=== PATIENT | male | born 1945 | race Caucasian/White ===

== ENCOUNTER 2022-08-28 12:33 | Inpatient (IN) ==
--- NOTE | 2022-08-28 12:49 | ED Triage Note ---
Date of Service August 28, 2022 History of Present Illness This patient was briefly evaluated while in triage. An abbreviated physical exam was performed. This patient is a 76-year-old Male who presents to the ED for evaluation of a fall last night. The patient and are visiting the area from [facility]. The patient lost his balance, and lost his reference in a dark room. Patient reports that he did have some dizziness yesterday. He does have weakness in the legs but seems to be at his baseline. Patient does have a prior history of diabetes, CVA and Parkinson's disease. His last CVA was approximately 1.5 years ago. Patient reports that he fell 1 week ago, and still has some open wounds on his left upper extremity. Patient currently rates his overall discomfort a 3 out of 10. Physical Exam CONSTITUTIONAL: Healthy and well nourished. Alert and oriented X 3. GCS 15. HEENT: Normocephalic, atraumatic. NECK: Full active range of motion without discomfort. RESPIRATORY: Clear to auscultation bilaterally with no wheezing, crackles, rhonchi or stridor. CARDIOVASCULAR: Regular rate and rhythm with no murmurs, rubs or gallops. GASTROINTESTINAL: Bowel sounds present in all quadrants. MUSCULOSKELETAL: Examination shows dressings on his left upper extremity. He also has an abrasion of the left anterior knee. INTEGUMENTARY: No rash or other significant dermatologic conditions noted. HEMATOLOGIC: No ecchymosis or petechiae. PSYCHIATRIC: Positive affect. NEUROLOGIC: No focal neurologic deficits noted. Initial orders for labs and / or imaging were placed and patient was placed in the waiting area until a bed is available. Please see further documentation for the full ED course.
--- NOTE | 2022-08-28 13:27 | CT Scan Report ---
CT head/brain wo con CLINICAL HISTORY: 76 years-old Male with Weakness, h/o CVA. Acute weakness with stroke like symptoms TECHNIQUE: Multiple axial CT images of the head were obtained without contrast. A dose lowering tech nique was utilized adhering to the principles of ALARA. CT DOSE: 625.80 mGy.cm COMPARISON: None. FINDINGS: No acute intracranial hemorrhage, midline shift, intracranial mass, hydrocephalus, territorial ischem ia or abnormal extra-axial collection. Involutional changes with chronic microvascular ischemic disea se. Scattered areas of encephalomalacia noted within the bilateral cerebral hemispheres. 6 mm ill-def ined hypodense focus in the posterior limb of the right internal capsule. Cerebral vascular calcifica tions. Motion degraded exam. The calvarium is intact. Prior bilateral lens repair. The paranasal sinuses, mastoid air cells, and m iddle ear cavities are clear. IMPRESSION: 1. Motion degraded exam without acute intracranial hemorrhage, midline shift or acute territorial inf arct. 2. Involutional changes with chronic microvascular ischemic disease. 3. Scattered areas of encephalomalacia within the bilateral cerebral hemispheres suggestive of chroni c infarcts. 4. Age-indeterminate subcentimeter lacunar infarct of the posterior limb right internal capsule. ACT 112: Negative or not required by law. The above report was generated using voice recognition software. It may contain grammatical, syntax o r spelling errors. Electronically signed by: Tyler Thrasher M.D. 08/28/2022 1:26 PM
--- NOTE | 2022-08-28 13:55 | XRay Report ---
XR chest 1V portable HISTORY: 76 years-old Male Weakness, falls acute weakness COMPARISON: None TECHNIQUE: AP view of the chest FINDINGS: Cardiac silhouette is upper limits of normal in size. A loop recorder device. Atherosclerosis of the aorta. No pneumothorax, pleural effusion, airspace consolidation or pulmonary edema. Bones appear janie ssly intact. Spondylitic spurring of the spine. IMPRESSION: No acute process. ACT 112: Negative or not required by law. The above report was generated using voice recognition software. It may contain grammatical, syntax o r spelling errors. Electronically signed by: Tyelr Thrasher M.D. 08/28/2022 1:53 PM
[2022-08-28 15:22] LABS: Basophils # (auto) 0.05 K/uL (0-0.2); Basophils % (auto) 0.5 %; Eosinophils # (auto) 0.07 K/uL (0-0.50); Eosinophils % (auto) 0.7 %; Hematocrit (blood only) 39.1 % (42.0-52.0); Hemoglobin 13.7 g/dl (14.0-18.0); Immature Granulocytes # (auto) 0.03 K/uL (0.01-0.20); Immature Granulocytes % (auto) 0.3 %; Lymphocytes # (auto) 1.35 K/uL (1.2-3.4); Lymphocytes % (auto) 13.9 %; Mean Corpuscular Hemoglobin 31.9 pg (25.0-34.0); Mean Corpuscular Volume 90.9 fL (80.0-100.0); Mean Platelet Volume 9.9 fL (9.4-12.4); Monocytes # (auto) 0.59 K/uL (0.11-0.59); Monocytes % (auto) 6.1 %; Neutrophils # (auto) 7.62 K/uL (1.40-6.50); Neutrophils % (auto) 78.5 %; Platelet Count 237 K/uL (130-400); RDW Coefficient of Variation 13.3 % (11.5-14.5); RDW Standard Deviation 44.4 fL (36.4-46.3); White Blood Count 9.71 K/ul (4.8-10.8)
--- NOTE | 2022-08-28 15:40 | Electrocardiogram Report ---
Test Reason : Blood Pressure : / mmHG Vent. Rate : 089 BPM Atrial Rate : 089 BPM P-R Int : 086 ms QRS Dur : 102 ms QT Int : 384 ms P-R-T Axes : 084 018 063 degrees QTc Int : 467 ms Sinus rhythm with short OH and brief pause (prior to first beat) Low voltage QRS Borderline ECG No previous ECGs available Confirmed by Issac Almonte ([id number]) on 08/28/2022 3:40:25 PM Referred By: REFERRED SELF Confirmed By:Issac Almonte
[2022-08-28 15:41] LABS: Alanine Aminotransferase 13 U/L (7-52); Albumin Globulin Ratio 1.7 (0.9-2); Albumin Level 4.4 gm/dl (3.4-5.0); Alkaline Phosphatase 65 U/L (34-104); Anion Gap 6 (3-11); Aspartate Aminotransferase 15 U/L (13-39); BUN Creatinine Ratio 15.2 (10-20); Bilirubin,Total 0.5 mg/dl (0.2-1.0); Blood Urea Nitrogen 15 mg/dl (6-23); Calcium 9.7 mg/dl (8.6-10.3); Carbon Dioxide 25 mmol/L (21-32); Chloride 109 mmol/L (98-107); Est GFR (African American) 84.2 ml/min; Est GFR (Non-African American) 72.6 ml/min; Globulin 2.6 gm/dl (2.5-4.0); Glucose 164 mg/dl (70-99(Fasting)); Magnesium 1.6 mg/dl (1.7-2.4); Potassium 4.6 mmol/L (3.5-5.1); Sodium 140 mmol/L (136-145)
[2022-08-28 15:47] LABS: Troponin I High Sensitivity 10.5 pg/ml (0-20)
[2022-08-28 16:11] LABS: INR 1.2 (0.9-1.1); Partial Thromboplastin Ratio 1.4; Partial Thromboplastin Time 39.4 Seconds (21.0-31.0); Prothrombin Time 13.4 Seconds (9.0-12.0)
[2022-08-28] MEDS ORDERED: SODIUM CHLORIDE 0.9% 1000ML 500 ML IV ONE (17:03)
[2022-08-28 17:38] LABS: Appearance Urine Clear (Clear); Bilirubin Urine Negative (Negative); Blood Urine Negative (Negative); Color Urine Yellow; Glucose Urine UA Negative (Negative); Ketones Urine Negative (Negative); Leukocyte Esterase Urine Negative (Negative); Nitrite Urine Negative (Negative); Protein Urine Negative (Negative); Specific Gravity Urine 1.014 (1.000-1.030); Urobilinogen Urine Negative (Negative); pH Urine 5.5 (4.5-7.5)
[2022-08-28 17:42] LABS: Creatine Kinase 159 U/L (30-223)
[2022-08-28] MEDS ORDERED: IOVERSOL 350 MG 125mL Prefilled Syringe IV ONE (18:21)
[2022-08-28] MEDS ORDERED: methylPREDNISolone 125 MG/2 ML VIAL IV STA (18:26)
[2022-08-28] MEDS ORDERED: diphenhydrAMINE 50 MG/ML VIAL IV STA (18:26)
--- NOTE | 2022-08-28 19:04 | CT Scan Report ---
HEAD & NECK CTA HISTORY: weakness difficulty walking TECHNIQUE: Multiaxial CT images of the head were performed following the intravenous administration o f contrast to evaluate the major cerebral vessels. Multiaxial CT images of the neck were also perform ed following the intravenous administration of contrast to evaluate the major cervical vessels. 3D/OK P images were also obtained. Sagittal and coronal reformats were reviewed. A dose lowering technique was utilized adhering to the principles of ALARA. COMPARISON: Head CT 08/28/2022. FINDINGS: Scattered old infarcts are again noted within the brain. The paranasal sinuses and mastoid air cells are clear. Moderate calcified plaque within the distal vertebral arteries and bilateral carotid sipho ns. This results in mild focal narrowing within the distal right vertebral artery and bilateral supra clinoid ICAs. The basilar artery is widely patent. Mild multifocal narrowing within the left SECURITY SYSTEM ANALYST. The right SECURITY SYSTEM ANALYST is widely patent. Mild multifocal narrowing within the right SHANDRA. The left SHANDRA is widely p atent. No significant stenosis or occlusion within the bilateral MCAs. No cerebral aneurysms identifi ed. The aortic arch and proximal great vessels are widely patent. No significant stenosis, occlusion, o r dissection within the bilateral vertebral arteries. Moderate calcified plaque within the bilateral carotid bifurcations. This results in approximately 30% stenosis at the takeoff of the right internal carotid artery and up to 50% stenosis at the takeoff of the left internal carotid artery. This is be st seen on image 215. The mid to distal bilateral internal carotid arteries are patent. The right com mon carotid artery is patent. There is approximately 60-70% stenosis at the distal left common caroti d artery best seen on image 208 due to the atherosclerotic plaque. IMPRESSION: 1. Multifocal areas of mild stenosis within the cerebral arteries as described above. No high-grade s tenosis or occlusion identified. 2. Approximately 60-70% stenosis at the distal left common carotid artery and 50% stenosis at the ewa eoff of the left internal carotid artery due to the atherosclerotic plaque. 3. Approximately 30% focal stenosis at the takeoff of the right internal carotid artery. 4. The bilateral cervical vertebral arteries are widely patent. ACT 112: Negative or not required by law. Electronically signed by: Manan Morton M.D. 08/28/2022 7:02 PM
--- NOTE | 2022-08-28 19:04 | CT Scan Report ---
HEAD & NECK CTA HISTORY: weakness difficulty walking TECHNIQUE: Multiaxial CT images of the head were performed following the intravenous administration o f contrast to evaluate the major cerebral vessels. Multiaxial CT images of the neck were also perform ed following the intravenous administration of contrast to evaluate the major cervical vessels. 3D/NC P images were also obtained. Sagittal and coronal reformats were reviewed. A dose lowering technique was utilized adhering to the principles of ALARA. COMPARISON: Head CT 08/28/2022. FINDINGS: Scattered old infarcts are again noted within the brain. The paranasal sinuses and mastoid air cells are clear. Moderate calcified plaque within the distal vertebral arteries and bilateral carotid sipho ns. This results in mild focal narrowing within the distal right vertebral artery and bilateral supra clinoid ICAs. The basilar artery is widely patent. Mild multifocal narrowing within the left CAREER TECHNICAL EDUCATION INSTRUCTOR. The right CAREER TECHNICAL EDUCATION INSTRUCTOR is widely patent. Mild multifocal narrowing within the right SHANDRA. The left SHANDRA is widely p atent. No significant stenosis or occlusion within the bilateral MCAs. No cerebral aneurysms identifi ed. The aortic arch and proximal great vessels are widely patent. No significant stenosis, occlusion, o r dissection within the bilateral vertebral arteries. Moderate calcified plaque within the bilateral carotid bifurcations. This results in approximately 30% stenosis at the takeoff of the right internal carotid artery and up to 50% stenosis at the takeoff of the left internal carotid artery. This is be st seen on image 215. The mid to distal bilateral internal carotid arteries are patent. The right com mon carotid artery is patent. There is approximately 60-70% stenosis at the distal left common caroti d artery best seen on image 208 due to the atherosclerotic plaque. IMPRESSION: 1. Multifocal areas of mild stenosis within the cerebral arteries as described above. No high-grade s tenosis or occlusion identified. 2. Approximately 60-70% stenosis at the distal left common carotid artery and 50% stenosis at the ewa eoff of the left internal carotid artery due to the atherosclerotic plaque. 3. Approximately 30% focal stenosis at the takeoff of the right internal carotid artery. 4. The bilateral cervical vertebral arteries are widely patent. ACT 112: Negative or not required by law. Electronically signed by: Manan Morton M.D. 08/28/2022 7:02 PM
[2022-08-28] MEDS ORDERED: NITROGLYCERIN SL 0.4 MG/TAB TAB SL PRN (22:14)
[2022-08-28] MEDS ORDERED: PHARMACIST DISCHARGE MED REC CONSULT PRN (22:14)
[2022-08-28] MEDS ORDERED: POLYETHYLENE (MIRALAX) 17 GM PACK PO PRN (22:14)
--- NOTE | 2022-08-28 22:14 | Emergency Department Note ---
History of Present Illness General Chief complaint: Fall Stated complaint: FALL, LT ARM INJURY, WEAKNESS - HAS HAD STROKES Time Seen by Provider: 08/28/22 16:40 History of Present Illness Provider complaint: Dizziness weakness fall Onset (ago): day(s) 2 Maximum Pain Intensity: 5 76-year-old male male presents emergency department for dizziness weakness and fall. Patient reports that he is visiting the area from the [facility]. He states most of his doctors are at [facility]. The patient states that he has a history of Parkinson's and stroke. He also states he has a history of atrial fibrillation and is on a blood thinner that he takes twice daily but he does not remember for his Eliquis or Xarelto. Patient reports that last night he got up in the middle night to urinate when he felt dizzy and fell. He states he felt very weak. His states that the patient called out for her and then she helped him up patient was not on the ground for extensive amount of time. Patient does not think he hit his head. Patient states he feels very weak and unsteady on his feet. Home Medications Medication Instructions Recorded Confirmed Type atorvastatin 80 mg tablet 80 mg PO QPM 08/28/22 08/28/22 History azelastine 137 mcg (0.1 %) nasal 2 spray intranasal Q12H 08/28/22 08/28/22 History spray aerosol bupropion HCl 300 mg 24 hr tablet, 300 mg PO DAILY 08/28/22 08/28/22 History extended release clindamycin phosphate 1 % topical 1 applic topical Q OTHER DAY PRN 08/28/22 08/28/22 History gel roseaca cyanocobalamin (vitamin B-12) 1,000 mcg PO DAILY 08/28/22 08/28/22 History 1,000 mcg tablet dabigatran etexilate 150 mg capsule 150 mg PO BID 08/28/22 08/28/22 History latanoprost 0.005 % eye drops 1 drp ophthalmic (eye) HS 08/28/22 08/28/22 History linaclotide 145 mcg capsule 145 mcg PO QAM 08/28/22 08/28/22 History (Linzess) lisinopril 20 mg tablet 20 mg PO DAILY 08/28/22 08/28/22 History metformin 1,000 mg tablet 1,000 mg PO BID 08/28/22 08/28/22 History mirtazapine 15 mg tablet 15 mg PO QPM 08/28/22 08/28/22 History pantoprazole 40 mg tablet,delayed See Rx Instructions .Route .COMPLEX 08/28/22 08/28/22 History release zolpidem 5 mg tablet 5 mg PO HS PRN Sleep 08/28/22 08/28/22 History Allergies Allergy/AdvReac Type Severity Reaction Status Date / Time Sulfa (Sulfonamide Allergy from when Unverified 08/28/22 19:22 Antibiotics) he was young Iodinated Contrast Media AdvReac Intermediate skin Unverified 08/28/22 19:27 turned red and warm, felt sick/some trouble breathing Past Med/Surg History Medical History Atrial fibrillation CVA (cerebral vascular accident) Diabetes GERD (gastroesophageal reflux disease) HLD (hyperlipidemia) HTN (hypertension) No pertinent family history Surgical History No pertinent past surgical history Social History Smoking Status: Never smoker Feels Safe at Home: Yes Physical Exam Vital Signs Vital Signs - 24 hr 08/28/22 12:45 08/28/22 16:13 08/28/22 16:30 Temperature 36.6 C Temperature Source Temporal Artery Scan Pulse Rate 58 L 73 Pulse Rate [Left Apical] 94 H Pulse Rate from SpO2 Sensor Respiratory Rate 20 20 17 Respiratory Effort / Characteristics Non-Labored Respiratory Depth Normal Normal Blood Pressure 133/58 L 159/89 H Blood Pressure [Right Arm] 164/85 H Blood Pressure Mean 83 112 Blood Pressure Mean [Right Arm] 111 Pulse Oximetry 96 97 97 Oxygen Delivery Method Room Air Room Air Room Air Sepsis Recent Fever Within 48 Hours No Sepsis New/Unexplained Change in Mental Status N/A Sepsis Action Taken by Nursing No Action Required 08/28/22 16:37 08/28/22 17:52 08/28/22 18:25 Temperature Temperature Source Pulse Rate 68 78 107 H Pulse Rate [Left Apical] Pulse Rate from SpO2 Sensor Respiratory Rate 14 12 Respiratory Effort / Characteristics Respiratory Depth Blood Pressure 159/85 H 88/56 L Blood Pressure [Right Arm] Blood Pressure Mean 109 66 Blood Pressure Mean [Right Arm] Pulse Oximetry 97 97 Oxygen Delivery Method Room Air Room Air Sepsis Recent Fever Within 48 Hours Sepsis New/Unexplained Change in Mental Status Sepsis Action Taken by Nursing 08/28/22 18:30 08/28/22 18:30 08/28/22 18:35 Temperature Temperature Source Pulse Rate 94 H Pulse Rate [Left Apical] Pulse Rate from SpO2 Sensor 94 H Respiratory Rate 18 Respiratory Effort / Characteristics Respiratory Depth Blood Pressure 110/64 132/69 Blood Pressure [Right Arm] Blood Pressure Mean 80 98 Blood Pressure Mean [Right Arm] Pulse Oximetry 97 Oxygen Delivery Method Sepsis Recent Fever Within 48 Hours Sepsis New/Unexplained Change in Mental Status Sepsis Action Taken by Nursing 08/28/22 18:35 08/28/22 18:40 08/28/22 18:41 Temperature Temperature Source Pulse Rate 90 91 H Pulse Rate [Left Apical] Pulse Rate from SpO2 Sensor 89 91 H Respiratory Rate 23 25 H Respiratory Effort / Characteristics Respiratory Depth Blood Pressure 134/71 Blood Pressure [Right Arm] Blood Pressure Mean 102 Blood Pressure Mean [Right Arm] Pulse Oximetry 95 93 Oxygen Delivery Method Sepsis Recent Fever Within 48 Hours Sepsis New/Unexplained Change in Mental Status Sepsis Action Taken by Nursing 08/28/22 18:41 08/28/22 18:46 08/28/22 18:46 Temperature Temperature Source Pulse Rate 91 H 98 H Pulse Rate [Left Apical] Pulse Rate from SpO2 Sensor 91 H 97 H Respiratory Rate 18 20 Respiratory Effort / Characteristics Respiratory Depth Blood Pressure 136/92 Blood Pressure [Right Arm] Blood Pressure Mean 94 Blood Pressure Mean [Right Arm] Pulse Oximetry 96 97 Oxygen Delivery Method Sepsis Recent Fever Within 48 Hours Sepsis New/Unexplained Change in Mental Status Sepsis Action Taken by Nursing 08/28/22 18:50 08/28/22 20:36 08/28/22 20:29 Temperature Temperature Source Pulse Rate 97 H 61 Pulse Rate [Left Apical] 61 Pulse Rate from SpO2 Sensor 98 H Respiratory Rate 14 18 Respiratory Effort / Characteristics Respiratory Depth Blood Pressure Blood Pressure [Right Arm] 141/73 H Blood Pressure Mean Blood Pressure Mean [Right Arm] 95 Pulse Oximetry 97 96 Oxygen Delivery Method Room Air Sepsis Recent Fever Within 48 Hours Sepsis New/Unexplained Change in Mental Status Sepsis Action Taken by Nursing Physical Exam GENERAL: He is oriented to person, place, and time. He appears well-developed and well-nourished. He does not appear distressed. HENT: Exam performed. - Head: Normocephalic and atraumatic. - Right Ear: External ear normal. No mastoid erythema - Left Ear: External ear normal. No mastoid erythema - Mouth/Throat: The oropharynx is clear and moist. No trismus in the jaw. No dental abscesses or uvula swelling. No oropharyngeal exudate or tonsillar abscesses. EYES: Conjunctivae and EOM are normal. Pupils are equal, round, and reactive to light. Right eye exhibits no discharge. Left eye exhibits no discharge. No scleral icterus. NECK: Normal range of motion. Neck supple. No JVD present. No spinous process tenderness present. No carotid bruit present. No rigidity. No tracheal deviation and normal range of motion present. CV: Normal rate, regular rhythm, normal heart sounds and intact distal pulses. There is no peripheral edema. Palpable radial pulses bue. PULM/CHEST: Effort normal and breath sounds normal. No respiratory distress. No stridor. He has no wheezes. He has no rales. - Chest Wall: He exhibits no tenderness. ABD: The abdomen is soft. There is no tenderness. There is no rebound, no guarding MUSC/SKEL: Pelvis stable. NEURO: Motor and sensation grossly intact. Course Course 1640: The patient was evaluated in room C9. A complete history and physical exam was performed Cardiac monitoring: An order was placed for continuous cardiac monitoring. The monitor shows a rate of 70 with atrial fibrilation rhythm interpreted by me 1830: Patient arrived back from CT angio scanning and the nurse reported that the patient was having difficulty breathing and was flushed. No tongue or lip swelling. On reassessment the patient is in no respiratory distress, lungs are clear to auscultation, no stridor, patient does have a mild erythematous rash. IV fluids IV Benadryl and IV Solu-Medrol given to the patient. 195: Vital signs stable. Patient's erythema has resolved. Patient is in no respiratory distress. Lungs clear to auscultation. No tongue or lip swelling. Labs are within normal limits. CT of the head shows microvascular ischemic disease with scattered areas of encephalomalacia suggestive of chronic infarcts and an age-indeterminate subcentimeter lacunar infarct of the right internal capsule. The states that the patient's doctors at [facility] told him he has had multiple strokes before he had his stroke most recently when he needed tPA. CT angios show multifocal areas of mild stenosis within the cerebral arter ies 6070% distal left common carotid artery and 50% stenosis at the takeoff 30% stenosis at the takeoff of the right internal carotid artery. states that this is being monitored and they have an appointment with [facility] vascular surgery next week. Patient and state that they feel that the patient is too weak and unstable on his feet to go back to the hotel room and be driven back to [place]. Patient will be admitted to the [facility] team. 2015: Called to bedside by nursing as the patient slid onto the floor onto his buttocks after his tried to help him ambulate to a chair adjacent to his bed. Patient denies hitting his head. Patient was lifted back into the bed by myself and nursing. Pelvis is stable. No pain on palpation of the pelvis. Patient did not hit his head no need for reimaging of the patient's head at this time. Administered Medications Discontinued Medications Diphenhydramine HCl (Diphenhydramine 50 Mg/Ml Vial) 25 mg IV NOW STA Stop: 08/28/22 18:27 Last Admin: 08/28/22 18:29 Dose: 25 mg Documented By: CHELSY Sodium Chloride (Nss 1000ml) 500 mls @ 999 mls/hr IV .Q31M ONE Stop: 08/28/22 17:33 Last Infusion: 08/28/22 17:54 Dose: 0 mls/hr Documented By: Admin: 08/28/22 17:26 Dose: 999 mls/hr Documented By: ECHO Ioversol (Ioversol 350 Mg 125ml Prefilled Syringe) 117 ml IV ONCE ONE Stop: 08/28/22 18:22 Last Admin: 08/28/22 18:22 Dose: 117 ml Documented By: EDGAR Methylprednisolone (Methylprednisolone 125 Mg/2 Ml Vial) 125 mg IV NOW STA Stop: 08/28/22 18:27 Last Admin: 08/28/22 18:29 Dose: 125 mg Documented By: CHELSY Medical Decision Making Laboratory Data Attestation: I reviewed the patient's lab results. 08/28/22 14:50 08/28/22 14:50 Lab Results 08/28/22 08/28/22 08/28/22 Range/Units 14:50 14:50 14:50 WBC 9.71 (4.8-10.8) K/ul RBC 4.30 L (4.70-6.10) M/uL Hgb 13.7 L (14.0-18.0) g/dl Hct 39.1 L (42.0-52.0) % MCV 90.9 (80.0-100.0) fL MCH 31.9 (25.0-34.0) pg MCHC 35.0 (32.0-36.0) g/dL RDW Std Deviation 44.4 (36.4-46.3) fL RDW Coeff of Osmar 13.3 (11.5-14.5) % Plt Count 237 (130-400) K/uL MPV 9.9 (9.4-12.4) fL Immature Gran % (Auto) 0.3 % Neut % (Auto) 78.5 % Lymph % (Auto) 13.9 % [place] % (Auto) 6.1 % Eos % (Auto) 0.7 % Baso % (Auto) 0.5 % Neut # (Auto) 7.62 H (1.40-6.50) K/uL Lymph # (Auto) 1.35 (1.2-3.4) K/uL [place] # (Auto) 0.59 (0.11-0.59) K/uL Eos # (Auto) 0.07 (0-0.50) K/uL Baso # (Auto) 0.05 (0-0.2) K/uL Immature Gran # (Auto) 0.03 (0.01-0.20) K/uL PT 13.4 H (9.0-12.0) Seconds INR 1.2 H (0.9-1.1) APTT 39.4 H (21.0-31.0) Seconds PTT Ratio 1.4 Sodium 140 (136-145) mmol/L Potassium 4.6 (3.5-5.1) mmol/L Chloride 109 H (98-107) mmol/L Carbon Dioxide 25 (21-32) mmol/L Anion Gap 6 (3-11) BUN 15 (6-23) mg/dl Creatinine 0.99 (0.6-1.4) mg/dl Est Cr Clr Drug Dosing Not Reportable Est GFR ( Amer) 84.2 ml/min Est GFR (Non-Af Amer) 72.6 ml/min BUN/Creatinine Ratio 15.2 (10-20) Glucose 164 H (70-99(Fasting)) mg/dl Calcium 9.7 (8.6-10.3) mg/dl Magnesium 1.6 L (1.7-2.4) mg/dl Total Bilirubin 0.5 (0.2-1.0) mg/dl AST 15 (13-39) U/L ALT 13 (7-52) U/L Alkaline Phosphatase 65 (34-104) U/L Total Creatine Kinase 159 (30-223) U/L Troponin I High Sens 10.5 (0-20) pg/ml Total Protein 7.0 (6.0-8.3) gm/dl Albumin 4.4 (3.4-5.0) gm/dl Globulin 2.6 (2.5-4.0) gm/dl Albumin/Globulin Ratio 1.7 (0.9-2) TSH (0.300-4.500) uIu/ml Urine Color Urine Appearance (Clear) Urine pH (4.5-7.5) Ur Specific [place] (1.000-1.030) Urine Protein (Negative) Urine Glucose (UA) (Negative) Urine Ketones (Negative) Urine Blood (Negative) Urine Nitrite (Negative) Urine Bilirubin (Negative) Urine Urobilinogen (Negative) Ur Leukocyte Esterase (Negative) SARS-CoV-2, RNA, NAAT (NEGATIVE) 08/28/22 08/28/22 08/28/22 Range/Units 14:50 17:25 20:38 WBC (4.8-10.8) K/ul RBC (4.70-6.10) M/uL Hgb (14.0-18.0) g/dl Hct (42.0-52.0) % MCV (80.0-100.0) fL MCH (25.0-34.0) pg MCHC (32.0-36.0) g/dL RDW Std Deviation (36.4-46.3) fL RDW Coeff of Osmar (11.5-14.5) % Plt Count (130-400) K/uL MPV (9.4-12.4) fL Immature Gran % (Auto) % Neut % (Auto) % Lymph % (Auto) % [place] % (Auto) % Eos % (Auto) % Baso % (Auto) % Neut # (Auto) (1.40-6.50) K/uL Lymph # (Auto) (1.2-3.4) K/uL [place] # (Auto) (0.11-0.59) K/uL Eos # (Auto) (0-0.50) K/uL Baso # (Auto) (0-0.2) K/uL Immature Gran # (Auto) (0.01-0.20) K/uL PT (9.0-12.0) Seconds INR (0.9-1.1) APTT (21.0-31.0) Seconds PTT Ratio Sodium (136-145) mmol/L Potassium (3.5-5.1) mmol/L Chloride (98-107) mmol/L Carbon Dioxide (21-32) mmol/L Anion Gap (3-11) BUN (6-23) mg/dl Creatinine (0.6-1.4) mg/dl Est Cr Clr Drug Dosing Est GFR ( Amer) ml/min Est GFR (Non-Af Amer) ml/min BUN/Creatinine Ratio (10-20) Glucose (70-99(Fasting)) mg/dl Calcium (8.6-10.3) mg/dl Magnesium (1.7-2.4) mg/dl Total Bilirubin (0.2-1.0) mg/dl AST (13-39) U/L ALT (7-52) U/L Alkaline Phosphatase (34-104) U/L Total Creatine Kinase (30-223) U/L Troponin I High Sens (0-20) pg/ml Total Protein (6.0-8.3) gm/dl Albumin (3.4-5.0) gm/dl Globulin (2.5-4.0) gm/dl Albumin/Globulin Ratio (0.9-2) TSH 0.699 (0.300-4.500) uIu/ml Urine Color Yellow Urine Appearance Clear (Clear) Urine pH 5.5 (4.5-7.5) Ur Specific [place] 1.014 (1.000-1.030) Urine Protein Negative (Negative) Urine Glucose (UA) Negative (Negative) Urine Ketones Negative (Negative) Urine Blood Negative (Negative) Urine Nitrite Negative (Negative) Urine Bilirubin Negative (Negative) Urine Urobilinogen Negative (Negative) Ur Leukocyte Esterase Negative (Negative) SARS-CoV-2, RNA, NAAT NEGATIVE (NEGATIVE) Imaging Data Radiologist's Impression: Chest X-Ray 08/28/22 12:50 XR chest 1V portable HISTORY: 76 years-old Male Weakness, falls acute weakness COMPARISON: None TECHNIQUE: AP view of the chest FINDINGS: Cardiac silhouette is upper limits of normal in size. A loop recorder device. Atherosclerosis of the aorta. No pneumothorax, pleural effusion, airspace consolidation or pulmonary edema. Bones appear grossly intact. Spondylitic spurring of the spine. IMPRESSION: No acute process. ACT 112: Negative or not required by law. The above report was generated using voice recognition software. It may contain grammatical, syntax or spelling errors. Electronically signed by: Tyler Thrasher M.D. 08/28/2022 1:[address] 08/28/22 12:51 CT head/brain wo con CLINICAL HISTORY: 76 years-old Male with Weakness, h/o CVA. Acute weakness with stroke like symptoms TECHNIQUE: Multiple axial CT images of the head were obtained without contrast. A dose lowering technique was utilized adhering to the principles of ALARA. CT DOSE: 625.80 mGy.cm COMPARISON: None. FINDINGS: No acute intracranial hemorrhage, midline shift, intracranial mass, hydrocephalus, territorial ischemia or abnormal extra-axial collection. Involutional changes with chronic microvascular ischemic disease. Scattered areas of encephalomalacia noted within the bilateral cerebral hemispheres. 6 mm ill-defined hypodense focus in the posterior limb of the right internal capsule. Cerebral vascular calcifications. Motion degraded exam. The calvarium is intact. Prior bilateral lens repair. The paranasal sinuses, mastoid air cells, and middle ear cavities are clear. IMPRESSION: 1. Motion degraded exam without acute intracranial hemorrhage, midline shift or acute territorial infarct. 2. Involutional changes with chronic microvascular ischemic disease. 3. Scattered areas of encephalomalacia within the bilateral cerebral hemispheres suggestive of chronic infarcts. 4. Age-indeterminate subcentimeter lacunar infarct of the posterior limb right internal capsule. ACT 112: Negative or not required by law. The above report was generated using voice recognition software. It may contain grammatical, syntax or spelling errors. Electronically signed by: Tyler Thrasher M.D. 08/28/2022 1:26 PM Head CTA 08/28/22 17:07 HEAD & NECK CTA HISTORY: weakness difficulty walking TECHNIQUE: Multiaxial CT images of the head were performed following the intravenous administration of contrast to evaluate the major cerebral vessels. Multiaxial CT images of the neck were also performed following the intravenous administration of contrast to evaluate the major cervical vessels. 3D/MIP images were also obtained. Sagittal and coronal reformats were reviewed. A dose lowering technique was utilized adhering to the principles of ALARA. COMPARISON: Head CT 08/28/2022. FINDINGS: Scattered old infarcts are again noted within the brain. The paranasal sinuses and mastoid air cells are clear. Moderate calcified plaque within the distal vertebral arteries and bilateral carotid siphons. This results in mild focal narrowing within the distal right vertebral artery and bilateral supraclinoid ICAs. The basilar artery is widely patent. Mild multifocal narrowing within the left FINISHING PAN OPERATOR. The right FINISHING PAN OPERATOR is widely patent. Mild multifocal narrowing within the right SHANDRA. The left SHANDRA is widely patent. No significant stenosis or occlusion within the bilateral MCAs. No cerebral aneurysms identified. The aortic arch and proximal great vessels are widely patent. No significant stenosis, occlusion, or dissection within the bilateral vertebral arteries. Moderate calcified plaque within the bilateral carotid bifurcations. This results in approximately 30% stenosis at the takeoff of the right internal carotid artery and up to 50% stenosis at the takeoff of the left internal caroti d artery. This is best seen on image 215. The mid to distal bilateral internal carotid arteries are patent. The right common carotid artery is patent. There is approximately 60-70% stenosis at the distal left common carotid artery best seen on image 208 due to the atherosclerotic plaque. IMPRESSION: 1. Multifocal areas of mild stenosis within the cerebral arteries as described above. No high-grade stenosis or occlusion identified. 2. Approximately 60-70% stenosis at the distal left common carotid artery and 50% stenosis at the takeoff of the left internal carotid artery due to the atherosclerotic plaque. 3. Approximately 30% focal stenosis at the takeoff of the right internal carotid artery. 4. The bilateral cervical vertebral arteries are widely patent. ACT 112: Negative or not required by law. Electronically signed by: Manan Morton M.D. 08/28/2022 7:02 PM Neck CTA 08/28/22 17:07 HEAD & NECK CTA HISTORY: weakness difficulty walking TECHNIQUE: Multiaxial CT images of the head were performed following the intravenous administration of contrast to evaluate the major cerebral vessels. Multiaxial CT images of the neck were also performed following the intravenous administration of contrast to evaluate the major cervical vessels. 3D/MIP images were also obtained. Sagittal and coronal reformats were reviewed. A dose lowering technique was utilized adhering to the principles of ALARA. COMPARISON: Head CT 08/28/2022. FINDINGS: Scattered old infarcts are again noted within the brain. The paranasal sinuses and mastoid air cells are clear. Moderate calcified plaque within the distal vertebral arteries and bilateral carotid siphons. This results in mild focal narrowing within the distal right vertebral artery and bilateral supraclinoid ICAs. The basilar artery is widely patent. Mild multifocal narrowing within the left FINISHING PAN OPERATOR. The right FINISHING PAN OPERATOR is widely patent. Mild multifocal narrowing within the right SHANDRA. The left SHANDRA is widely patent. No significant stenosis or occlusion within the bilateral MCAs. No cerebral aneurysms identified. The aortic arch and proximal great vessels are widely patent. No significant stenosis, occlusion, or dissection within the bilateral vertebral arteries. Moderate calcified plaque within the bilateral carotid bifurcations. This results in approximately 30% stenosis at the takeoff of the right internal carotid artery and up to 50% stenosis at the takeoff of the left internal carotid artery. This is best seen on image 215. The mid to distal bilateral internal carotid arteries are patent. The right common carotid artery is patent. There is approximately 60-70% stenosis at the distal left common carotid artery best seen on image 208 due to the atherosclerotic plaque. IMPRESSION: 1. Multifocal areas of mild stenosis within the cerebral arteries as described above. No high-grade stenosis or occlusion identified. 2. Approximately 60-70% stenosis at the distal left common carotid artery and 50% stenosis at the takeoff of the left internal carotid artery due to the atherosclerotic plaque. 3. Approximately 30% focal stenosis at the takeoff of the right internal carotid artery. 4. The bilateral cervical vertebral arteries are widely patent. ACT 112: Negative or not required by law. Electronically signed by: Manan Morton M.D. 08/28/2022 7:02 PM ECG Data Attestation: I personally reviewed and interpreted this ECG as follows: Additional Comments: EKG #1 at 1451: Atrial fibrillation with a rate of 89. QRS [address] elevation or ST depression. EKG #2 at 1657: Atrial fibrillation with rate of 67. QRS and QTc intervals within normal limits. No ST elevation or ST depression. MDM Narrative 1640: The patient was evaluated in room C9. A complete history and physical exam was performed Cardiac monitoring: An order was placed for continuous cardiac monitoring. The monitor shows a rate of 70 with atrial fibrilation rhythm interpreted by me 1830: Patient arrived back from CT angio scanning and the nurse reported that the patient was having difficulty breathing and was flushed. No tongue or lip swelling. On reassessment the patient is in no respiratory distress, lungs are clear to auscultation, no stridor, patient does have a mild erythematous rash. IV fluids IV Benadryl and IV Solu-Medrol given to the patient. 1954: Vital signs stable. Patient's erythema has resolved. Patient is in no respiratory distress. Lungs clear to auscultation. No tongue or lip swelling. Labs are within normal limits. CT of the head shows microvascular ischemic disease with scattered areas of encephalomalacia suggestive of chronic infarcts and an age-indeterminate subcentimeter lacunar infarct of the right internal capsule. The states that the patient's doctors at [facility] told him he has had multiple strokes before he had his stroke most recently when he needed tPA. CT angios show multifocal areas of mild stenosis within the cerebral arteries 6070% distal left common carotid artery and 50% stenosis at the takeoff 30% stenosis at the takeoff of the right internal carotid artery. states that this is being monitored and they have an appointment with [facility] vascular surgery next week. Patient and state that they feel that the pa tient is too weak and unstable on his feet to go back to the hotel room and be driven back to [place]. Patient will be admitted to the [facility] team. 2015: Called to bedside by nursing as the patient slid onto the floor onto his buttocks after his tried to help him ambulate to a chair adjacent to his bed. Patient denies hitting his head. Patient was lifted back into the bed by myself and nursing. Pelvis is stable. No pain on palpation of the pelvis. Patient did not hit his head no need for reimaging of the patient's head at this time. Impression & Plan Weakness Discharge Plan Visit Data Chief Complaint: Fall Stated Complaint: FALL, LT ARM INJURY, WEAKNESS - HAS HAD STROKES ED Provider: Brad Casillas Discharge Problem: Weakness Patient Disposition: Admitted As Inpatient Discharge Instructions Interventions: ED Discharge Assessment Last Done: 08/28/22 22:15
[2022-08-28] MEDS ORDERED: MELATONIN 3 MG TAB PO PRN (22:24)
--- NOTE | 2022-08-28 22:34 | History & Physical Report ---
Date of Service August 28, 2022 Assessment & Plan (1) Weakness: Plan: 76-year-old male with past medical history of diabetes Parkinson's, history of CVA about 1 to 2 years ago, hypertension, a fib? Presents with weakness and possible strokelike symptoms. Weakness strokelike symptoms Last night he had weakness of the bilateral lower extremities until morning and then the got resolved When had contrast for CAT scan he had allergic reaction at that time he had spasms of the left lower extremity and some weakness in the left lower extremity that is improving now. Says has restless legs CT head shows chronic chronic infarcts and also age-indeterminate lateral infarct in the posterior limb right internal capsule. CTA head and neck multifocal areas of mild stenosis within the cerebral arteries. 60 to 70% stenosis of the distal left common carotid artery and 50% at the takeoff of the internal carotid artery. 30% stenosis at the takeoff of the right internal carotid artery. Patient says he has a follow-up appoint with vascular surgery and he had this stenosis before Will do full stroke work-up. Monitoring telemetry MRI scan (have to wait until his gets device reading for loop recorder) Neuro consult in a.m. speech evaluation and PT OT Gentle fluids Patient is on Pradaxa and high-dose statin. We will add aspirin for now. Await neuro input. Abnormal EKG We will follow repeat EKG and echocardiogram Patient has loop recorder and follows with cardiology at [place] Telemetry monitoring Any concern consider cardiology consult Possible A-fib Rates under control On Pradaxa We will monitor Parkinson's disease Constipation On Lantus Diabetes We will hold metformin Insulin sliding scale Follow blood sugars and HbA1c levels Hypertension Lisinopril Permissive hypertension Hyperlipidemia On statin We will follow fasting lipid profile DVT prophylaxis on Pradaxa Disposition monitoring telemetry Full code (2) Diabetes: (3) Atrial fibrillation: Admission and Anticipated Discharge Date Admission Date: August 28, 2022 History of Present Illness Chief Complaint: Weakness Primary Care Provider: NO PCP 76-year-old male with past medical significant for diabetes Parkinson's, history of CVA about 1 to 2 years ago, hypertension, a fib? who is from [facility] visiting [place] presents with weakness of lower extremities. Patient says Parkinson's he has some balance issues. Last night in the hotel room in the middle of the night it was dark he went to the bathroom and sat down on commode and he thinks he slipped a little bit but did not fall down and there was no loss of consciousness but he could not get up. is to call two staff people to help him get up from the commode. This reason he came here. His both legs feel weak in the morning. But they got better. When he went to CAT scan with IV contrast he had allergic reaction with nausea shortness of breath. After Benadryl and steroid his symptoms improved. When is having allergic reaction he also developed spasms in his left lower extremity and his left lower extremity felt weak. On initial exam the left lower extremity was somewhat weak but after a few minutes later it was much improved. Patient says its because of spasm and is is getting better. Patient says he had stroke about 1 and half years ago he had left-sided weakness and and was in the [facility] .States that his left-sided weakness improved now. He is also following with cardiology in [facility]. He thinks his A-fib. He has a loop recorder for last several months. He is on Pradaxa.. He used to be on aspirin and Plavix but after starting Pradaxa aspirin and Plavix are stopped as per patient. Currently resting comfortably and hemodynamically stable. Denies any headache. No blurred visions or earache or runny nose or sore throat. No cough. No difficulty swallowing. Speech is clear. Able to give his history. Denies any chest pain or shortness of breath. No fevers. No nausea currently. No abdominal pain. He is usually constipated because of Parkinson's and takes Linzess. Says his bladder does not work properly and had procedure for it. Past medical history as mentioned above Past surgical history placement of loop recorder Family history father had arrhythmia, mother had leukemia Social history no smoking history , no alcohol Allergies Allergy/AdvReac Type Severity Reaction Status Date / Time Sulfa (Sulfonamide Allergy from when Unverified 08/28/22 19:22 Antibiotics) he was young Iodinated Contrast Media AdvReac Intermediate skin Unverified 08/28/22 19:27 turned red and warm, felt sick/some trouble breathing Home Medications Medication Instructions Recorded Confirmed Type atorvastatin 80 mg tablet 80 mg PO QPM 08/28/22 08/28/22 History azelastine 137 mcg (0.1 %) nasal 2 spray intranasal Q12H 08/28/22 08/28/22 History spray aerosol bupropion HCl 300 mg 24 hr tablet, 300 mg PO DAILY 08/28/22 08/28/22 History extended release clindamycin phosphate 1 % topical 1 applic topical Q OTHER DAY PRN 08/28/22 08/28/22 History gel roseaca cyanocobalamin (vitamin B-12) 1,000 mcg PO DAILY 08/28/22 08/28/22 History 1,000 mcg tablet dabigatran etexilate 150 mg capsule 150 mg PO BID 08/28/22 08/28/22 History latanoprost 0.005 % eye drops 1 drp ophthalmic (eye) HS 08/28/22 08/28/22 History linaclotide 145 mcg capsule 145 mcg PO QAM 08/28/22 08/28/22 History (Linzess) lisinopril 20 mg tablet 20 mg PO DAILY 08/28/22 08/28/22 History metformin 1,000 mg tablet 1,000 mg PO BID 08/28/22 08/28/22 History mirtazapine 15 mg tablet 15 mg PO QPM 08/28/22 08/28/22 History pantoprazole 40 mg tablet,delayed See Rx Instructions .Route .COMPLEX 08/28/22 08/28/22 History release zolpidem 5 mg tablet 5 mg PO HS PRN Sleep 08/28/22 08/28/22 History Past Med/Surg History Medical History Atrial fibrillation CVA (cerebral vascular accident) Diabetes GERD (gastroesophageal reflux disease) HLD (hyperlipidemia) HTN (hypertension) No pertinent family history Surgical History No pertinent past surgical history Social History Smoking Status: Never smoker Feels Safe at Home: Yes Review of Systems Review of Systems: All systems reviewed & are unremarkable except as noted in Subjective Physical Exam Physical Exam: General- Not in distress Head- atraumatic Eyes- PERRL, EOMI, ENT- oropharynx clear Neck- supple, no JVD, Lungs- clear to auscultation and percussion Heart- regular rhythm; no murmur, no gallop, no rub appreciated Abdomen- normal bowel sounds, soft, nontender, no distension Extremities- no pretibial edema, no erythema seen Neuro- alert, oriented x 3; PERRL, EOMI; no facial palsy; no dysarthria; motor 5/5 bilaterally on right side 4/5 on left side coordination of movements normal sensations intact.Insight good Skin- warm & dry Results & Data Results & Data Vital Signs (Past 12 Hours) Vital Signs Temp Pulse Pulse Resp BP BP Pulse Ox 08/28/22 22:16 64 20 151/80 H 08/28/22 20:29 61 08/28/22 20:36 61 18 141/73 H 96 08/28/22 18:50 97 H 14 97 08/28/22 18:46 98 H 20 97 08/28/22 18:46 136/92 08/28/22 18:41 91 H 18 96 08/28/22 18:41 134/71 08/28/22 18:40 91 H 25 H 93 08/28/22 18:35 90 23 95 08/28/22 18:35 132/69 08/28/22 18:30 94 H 18 97 08/28/22 18:30 110/64 08/28/22 18:25 107 H 12 88/56 L 97 08/28/22 17:52 78 14 159/85 H 97 08/28/22 16:37 68 08/28/22 16:30 73 17 159/89 H 97 08/28/22 16:13 94 H 20 164/85 H 97 08/28/22 12:45 36.6 C 58 L 20 133/58 L 96 O2 Del Method 08/28/22 22:16 08/28/22 20:29 08/28/22 20:36 Room Air 08/28/22 18:50 08/28/22 18:46 08/28/22 18:46 08/28/22 18:41 08/28/22 18:41 08/28/22 18:40 08/28/22 18:35 08/28/22 18:35 08/28/22 18:30 08/28/22 18:30 08/28/22 18:25 Room Air 08/28/22 17:52 Room Air 08/28/22 16:37 08/28/22 16:30 Room Air 08/28/22 16:13 Room Air 08/28/22 12:45 Room Air Diagnostic Findings Laboratory Results WBC 9.71 K/ul (4.8-10.8) 08/28/22 14:50 RBC 4.30 M/uL (4.70-6.10) L 08/28/22 14:50 Hgb 13.7 g/dl (14.0-18.0) L 08/28/22 14:50 Hct 39.1 % (42.0-52.0) L 08/28/22 14:50 MCV 90.9 fL (80.0-100.0) 08/28/22 14:50 MCH 31.9 pg (25.0-34.0) 08/28/22 14:50 MCHC 35.0 g/dL (32.0-36.0) 08/28/22 14:50 RDW Std Deviation 44.4 fL (36.4-46.3) 08/28/22 14:50 RDW Coeff of Osmar 13.3 % (11.5-14.5) 08/28/22 14:50 Plt Count 237 K/uL (130-400) 08/28/22 14:50 MPV 9.9 fL (9.4-12.4) 08/28/22 14:50 Immature Gran % (Auto) 0.3 % 08/28/22 14:50 Neut % (Auto) 78.5 % 08/28/22 14:50 Lymph % (Auto) 13.9 % 08/28/22 14:50 Weld % (Auto) 6.1 % 08/28/22 14:50 Eos % (Auto) 0.7 % 08/28/22 14:50 Baso % (Auto) 0.5 % 08/28/22 14:50 Neut # (Auto) 7.62 K/uL (1.40-6.50) H 08/28/22 14:50 Lymph # (Auto) 1.35 K/uL (1.2-3.4) 08/28/22 14:50 Weld # (Auto) 0.59 K/uL (0.11-0.59) 08/28/22 14:50 Eos # (Auto) 0.07 K/uL (0-0.50) 08/28/22 14:50 Baso # (Auto) 0.05 K/uL (0-0.2) 08/28/22 14:50 Immature Gran # (Auto) 0.03 K/uL (0.01-0.20) 08/28/22 14:50 PT 13.4 Seconds (9.0-12.0) H 08/28/22 14:50 INR 1.2 (0.9-1.1) H 08/28/22 14:50 APTT 39.4 Seconds (21.0-31.0) H 08/28/22 14:50 PTT Ratio 1.4 08/28/22 14:50 Sodium 140 mmol/L (136-145) 08/28/22 14:50 Potassium 4.6 mmol/L (3.5-5.1) 08/28/22 14:50 Chloride 109 mmol/L (98-107) H 08/28/22 14:50 Carbon Dioxide 25 mmol/L (21-32) 08/28/22 14:50 Anion Gap 6 (3-11) 08/28/22 14:50 BUN 15 mg/dl (6-23) 08/28/22 14:50 Creatinine 0.99 mg/dl (0.6-1.4) 08/28/22 14:50 Est Cr Clr Drug Dosing Not Reportable 08/28/22 14:50 Est GFR ( Amer) 84.2 ml/min 08/28/22 14:50 Est GFR (Non-Af Amer) 72.6 ml/min 08/28/22 14:50 BUN/Creatinine Ratio 15.2 (10-20) 08/28/22 14:50 Glucose 164 mg/dl (70-99(Fasting)) H 08/28/22 14:50 Calcium 9.7 mg/dl (8.6-10.3) 08/28/22 14:50 Magnesium 1.6 mg/dl (1.7-2.4) L 08/28/22 14:50 Total Bilirubin 0.5 mg/dl (0.2-1.0) 08/28/22 14:50 AST 15 U/L (13-39) 08/28/22 14:50 ALT 13 U/L (7-52) 08/28/22 14:50 Alkaline Phosphatase 65 U/L (34-104) 08/28/22 14:50 Total Creatine Kinase 159 U/L (30-223) 08/28/22 14:50 Troponin I High Sens 10.5 pg/ml (0-20) 08/28/22 14:50 Total Protein 7.0 gm/dl (6.0-8.3) 08/28/22 14:50 Albumin 4.4 gm/dl (3.4-5.0) 08/28/22 14:50 Globulin 2.6 gm/dl (2.5-4.0) 08/28/22 14:50 Albumin/Globulin Ratio 1.7 (0.9-2) 08/28/22 14:50 TSH 0.699 uIu/ml (0.300-4.500) 08/28/22 14:50 Urine Color Yellow 08/28/22 17:25 Urine Appearance Clear (Clear) 08/28/22 17:25 Urine pH 5.5 (4.5-7.5) 08/28/22 17:25 Ur Specific [place] 1.014 (1.000-1.030) 08/28/22 17:25 Urine Protein Negative (Negative) 08/28/22 17:25 Urine Glucose (UA) Negative (Negative) 08/28/22 17:25 Urine Ketones Negative (Negative) 08/28/22 17:25 Urine Blood Negative (Negative) 08/28/22 17:25 Urine Nitrite Negative (Negative) 08/28/22 17:25 Urine Bilirubin Negative (Negative) 08/28/22 17:25 Urine Urobilinogen Negative (Negative) 08/28/22 17:25 Ur Leukocyte Esterase Negative (Negative) 08/28/22 17:25 SARS-CoV-2, RNA, NAAT NEGATIVE (NEGATIVE) 08/28/22 20:38 Impressions Chest X-Ray 08/28/22 12:50 XR chest 1V portable HISTORY: 76 years-old Male Weakness, falls acute weakness COMPARISON: None TECHNIQUE: AP view of the chest FINDINGS: Cardiac silhouette is upper limits of normal in size. A loop recorder device. Atherosclerosis of the aorta. No pneumothorax, pleural effusion, airspace consolidation or pulmonary edema. Bones appear grossly intact. Spondylitic spurring of the spine. IMPRESSION: No acute process. ACT 112: Negative or not required by law. The above report was generated using voice recognition software. It may contain grammatical, syntax or spelling errors. Electronically signed by: Tyler Thrasher M.D. 08/28/2022 1:[address] 08/28/22 12:51 CT head/brain wo con CLINICAL HISTORY: 76 years-old Male with Weakness, h/o CVA. Acute weakness with stroke like symptoms TECHNIQUE: Multiple axial CT images of the head were obtained without contrast. A dose lowering technique was utilized adhering to the principles of ALARA. CT DOSE: 625.80 mGy.cm COMPARISON: None. FINDINGS: No acute intracranial hemorrhage, midline shift, intracranial mass, hydrocephalus, territorial ischemia or abnormal extra-axial collection. Involutional changes with chronic microvascular ischemic disease. Scattered areas of encephalomalacia noted within the bilateral cerebral hemispheres. 6 mm ill-defined hypodense focus in the posterior limb of the right internal capsule. Cerebral vascular calcifications. Motion degraded exam. The calvarium is intact. Prior bilateral lens repair. The paranasal sinuses, mastoid air cells, and middle ear cavities are clear. IMPRESSION: 1. Motion degraded exam without acute intracranial hemorrhage, midline shift or acute territorial infarct. 2. Involutional changes with chronic microvascular ischemic disease. 3. Scattered areas of encephalomalacia within the bilateral cerebral hemispheres suggestive of chronic infarcts. 4. Age-indeterminate subcentimeter lacunar infarct of the posterior limb right internal capsule. ACT 112: Negative or not required by law. The above report was generated using voice recognition software. It may contain grammatical, syntax or spelling errors. Electronically signed by: Tyler Thrasher M.D. 08/28/2022 1:26 PM Head CTA 08/28/22 17:07 HEAD & NECK CTA HISTORY: weakness difficulty walking TECHNIQUE: Multiaxial CT images of the head were performed following the intravenous administration of contrast to evaluate the major cerebral vessels. Multiaxial CT images of the neck were also performed following the intravenous administration of contrast to evaluate the major cervical vessels. 3D/MIP images were also obtained. Sagittal and coronal reformats were reviewed. A dose lowering technique was utilized adhering to the principles of ALARA. COMPARISON: Head CT 08/28/2022. FINDINGS: Scattered old infarcts are again noted within the brain. The paranasal sinuses and mastoid air cells are clear. Moderate calcified plaque within the distal vertebral arteries and bilateral carotid siphons. This results in mild focal narrowing within the distal right vertebral artery and bilateral supraclinoid ICAs. The basilar artery is widely patent. Mild multifocal narrowing within the left ASSEMBLER DRY CELL AND BATTERY. The right ASSEMBLER DRY CELL AND BATTERY is widely patent. Mild multifocal narrowing within the right SHANDRA. The left SHANDRA is widely patent. No significant stenosis or occlusion within the bilateral MCAs. No cerebral aneurysms identified. The aortic arch and proximal great vessels are widely patent. No significant stenosis, occlusion, or dissection within the bilateral vertebral arteries. Moderate calcified plaque within the bilateral carotid bifurcations. This results in approximately 30% stenosis at the takeoff of the right internal carotid artery and up to 50% stenosis at the takeoff of the left internal carotid artery. This is best seen on image 215. The mid to distal bilateral internal carotid arteries are patent. The right common carotid artery is patent. There is approximately 60-70% stenosis at the distal left common carotid artery best seen on image 208 due to the atherosclerotic plaque. IMPRESSION: 1. Multifocal areas of mild stenosis within the cerebral arteries as described above. No high-grade stenosis or occlusion identified. 2. Approximately 60-70% stenosis at the distal left common carotid artery and 50% stenosis at the takeoff of the left internal carotid artery due to the atherosclerotic plaque. 3. Approximately 30% focal stenosis at the takeoff of the right internal carotid artery. 4. The bilateral cervical vertebral arteries are widely patent. ACT 112: Negative or not required by law. Electronically signed by: Manan Morton M.D. 08/28/2022 7:02 PM Neck CTA 08/28/22 17:07 HEAD & NECK CTA HISTORY: weakness difficulty walking TECHNIQUE: Multiaxial CT images of the head were performed following the intravenous administration of contrast to evaluate the major cerebral vessels. Multiaxial CT images of the neck were also performed following the intravenous administration of contrast to evaluate the major cervical vessels. 3D/MIP images were also obtained. Sagittal and coronal reformats were reviewed. A dose lowering technique was utilized adhering to the principles of ALARA. COMPARISON: Head CT 08/28/2022. FINDINGS: Scattered old infarcts are again noted within the brain. The paranasal sinuses and mastoid air cells are clear. Moderate calcified plaque within the distal vertebral arteries and bilateral carotid siphons. This results in mild focal narrowing within the distal right vertebral artery and bilateral supraclinoid ICAs. The basilar artery is widely patent. Mild multifocal narrowing within the left ASSEMBLER DRY CELL AND BATTERY. The right ASSEMBLER DRY CELL AND BATTERY is widely patent. Mild multifocal narrowing within the right SHANDRA. The left SHANDRA is widely patent. No significant stenosis or occlusion within the bilateral MCAs. No cerebral aneurysms identified. The aortic arch and proximal great vessels are widely patent. No significant stenosis, occlusion, or dissection within the bilateral vertebral arteries. Moderate calcified plaque within the bilateral carotid bifurcations. This results in approximately 30% stenosis at the takeoff of the right internal carotid artery and up to 50% stenosis at the takeoff of the left internal carotid artery. This is best seen on image 215. The mid to distal bilateral internal carotid arteries are patent. The right common carotid artery is patent. There is approximately 60-70% stenosis at the distal left common carotid artery best seen on image 208 due to the atherosclerotic plaque. IMPRESSION: 1. Multifocal areas of mild stenosis within the cerebral arteries as described above. No high-grade stenosis or occlusion identified. 2. Approximately 60-70% stenosis at the distal left common carotid artery and 50% stenosis at the takeoff of the left internal carotid artery due to the atherosclerotic plaque. 3. Approximately 30% focal stenosis at the takeoff of the right internal carotid artery. 4. The bilateral cervical vertebral arteries are widely patent. ACT 112: Negative or not required by law. Electronically signed by: Manan Morton M.D. 08/28/2022 7:02 PM ECG Additional Comments: ECG sinus rhythm with short DE and brief pauses with a rate of 89 Code Status & VTE Plan VTE Prophylaxis Plan VTE Prophylaxis will be ordered: Yes
[2022-08-29] MEDS ORDERED: ATORVASTATIN 40 MG TAB PO STA (00:39)
[2022-08-29] MEDS ORDERED: MIRTAZAPINE TAB 15 MG TAB PO STA (00:39)
[2022-08-29] MEDS: DABIGATRAN ETEXILATE 75 MG CAP PO SCH ×3 (01:06→20:44)
[2022-08-29] MEDS: ZOLPIDEM TARTRATE 5 MG TAB PO PRN ×2 (01:06→20:13)
[2022-08-29] MEDS ORDERED: PRAMIPEXOLE DIHYDROCHLO 0.25 MG TAB PO STA (01:17)
[2022-08-29] MEDS: SODIUM CHLORIDE 0.9% 1000ML 1,000 ML IV SCH ×3 (02:45→13:30)
[2022-08-29] MEDS ORDERED: LORazepam 0.5 MG TAB PO STA (03:15)
[2022-08-29] MEDS ORDERED: ASPIRIN 81 MG ECTAB PO STA (03:16)
[2022-08-29 05:02] LABS: Hematocrit (blood only) 34.4 % (42.0-52.0); Hemoglobin 12.2 g/dl (14.0-18.0); Mean Corpuscular Hemoglobin 31.9 pg (25.0-34.0); Mean Corpuscular Hgb Conc 35.5 g/dL (32.0-36.0); Mean Corpuscular Volume 90.1 fL (80.0-100.0); Mean Platelet Volume 9.8 fL (9.4-12.4); Platelet Count 206 K/uL (130-400); RDW Coefficient of Variation 13.1 % (11.5-14.5); RDW Standard Deviation 43.1 fL (36.4-46.3); Red Blood Count 3.82 M/uL (4.70-6.10); White Blood Count 8.99 K/ul (4.8-10.8)
[2022-08-29 05:17] LABS: BUN Creatinine Ratio 18.5 (10-20); Calcium 8.9 mg/dl (8.6-10.3); Chol HDL Ratio 2.2 (0-5); Creatinine Clr Calc Pharmacy 60.2 ml/min; Est GFR (African American) 75.8 ml/min; Est GFR (Non-African American) 65.4 ml/min; Potassium 4.4 mmol/L (3.5-5.1)
[2022-08-29 05:40] LABS: Basophils # (auto) 0.01 K/uL (0-0.2); Basophils % (auto) 0.1 %; Echinocytes 2+; Immature Granulocytes # (auto) 0.03 K/uL (0.01-0.20); Immature Granulocytes % (auto) 0.3 %; Lymphocytes # (auto) 0.52 K/uL (1.2-3.4); Lymphocytes % (auto) 5.8 %; Monocytes % (auto) 2.2 %; Neutrophils # (auto) 8.23 K/uL (1.40-6.50); Neutrophils % (auto) 91.6 %
[2022-08-29 07:57] LABS: Estimated Average Glucose 174 mg/dl; Hemoglobin A1C 7.7 % (4.5-5.6)
[2022-08-29] MEDS: ASPIRIN 81 MG ECTAB PO SCH (08:51)
[2022-08-29] MEDS: AZELASTINE HCL 0.1% NASAL 200 SPRAYS/27,400 MCG BTL SCH ×2 (08:52→20:44)
[2022-08-29] MEDS: lisinopril 20 MG TAB PO SCH (08:53)
[2022-08-29] MEDS: CYANOCOBALAMIN (B-12) 500 MCG TABLET PO SCH (08:53)
[2022-08-29] MEDS: buPROPion XL 150 MG TABCR PO SCH (08:53)
[2022-08-29] MEDS ORDERED: CLOPIDOGREL BISULFATE 75 MG TAB PO SCH (09:00)
[2022-08-29] MEDS ORDERED: linaCLOtide 72 MCG CAPSULE PO SCH (09:00)
[2022-08-29] MEDS ORDERED: AZELASTINE HCL 0.1% NASAL 200 SPRAYS/27,400 MCG BTL SCH (09:00)
[2022-08-29] MEDS ORDERED: linaCLOtide 72 MCG CAPSULE PO ONE (11:00)
--- NOTE | 2022-08-29 11:46 | Electrocardiogram Report ---
Test Reason : Blood Pressure : / mmHG Vent. Rate : 067 BPM Atrial Rate : 000 BPM P-R Int : 000 ms QRS Dur : 104 ms QT Int : 414 ms P-R-T Axes : 000 032 063 degrees QTc Int : 437 ms Sinus rhythm Incomplete right bundle branch block Abnormal ECG When compared with ECG of 28-AUG-2022 14:51, No significant change Confirmed by Issac Almonte ([id number]) on 08/29/2022 11:46:28 AM Referred By: REFERRED SELF Confirmed By:Issac Almonte
--- NOTE | 2022-08-29 16:56 | Hospitalist Progress Note ---
Date of Service August 29, 2022 Assessment & Plan (1) Weakness: Plan: 76-year-old male with past medical history of diabetes , Parkinson's, history of CVA about 1 to 2 years ago, hypertension, a fib? Presents with weakness of BLE (Lt > Rt) and possible strokelike symptoms. He also had allergic reaction to the contrast used in ED during imaging w/ nausea, shortness of breath, whole body redness/itching which were relieved with use of Benadryl and steroid. Iodinated contrast has been put in allergy list. He is being managed for the following: Weakness strokelike symptoms The night of arrival he had weakness of the bilateral lower extremities until morning and then the got resolved When had contrast for CAT scan he had allergic reaction at that time he had spasms of the left lower extremity and some weakness in the left lower extremity that is improving now. Says has restless legs CT head shows chronic infarcts and also age-indeterminate lateral infarct in the posterior limb right internal capsule. CTA head and neck w/ multifocal areas of mild stenosis within the cerebral arteries. 60 to 70% stenosis of the distal left common carotid artery and 50% at the takeoff of the internal carotid artery. 30% stenosis at the takeoff of the right internal carotid artery. Patient says he has a follow-up appoint with vascular surgery and he had this stenosis before LLE weakness improved at bedside exam, continue with telemetry, MRI cannot be done due to not having remote for his bladder stimulator per pharmacy technician per diem. A1c of 7.7, LDL of 49. Neurology consulted, awaiting recommendation. Speech evaluated, patient on diet. PT/OT. Patient is on Pradaxa and high-dose statin. Continue with newly added aspirin for now. Await neuro input. Abnormal EKG: Repeat EKG about the same and follow-up echocardiogram. Patient has loop recorder and follows with cardiology at [place]. Continue with telemetry monitoring. Any concern consider cardiology consult Possible A-fib, Rates under control: On Pradaxa. We will monitor Constipation: Continue home Linzess Diabetes: We will hold metformin, Insulin sliding scale. A1c of 7.7. Hypertension: Continue with home lisinopril Hyperlipidemia: Continue with home statin DVT prophylaxis on Pradaxa Disposition: PT/OT, awaiting neuro eval. Full code (2) Diabetes: (3) Atrial fibrillation: Admission and Anticipated Discharge Date Admission Date: August 28, 2022 Subjective Patient seen and examined at bedside as a follow-up of weakness and strokelike symptoms. Patient was lying in bed, on room air, NAD, reports left lower extremity weakness more than right, denies any headache or dizziness or chest pain, reports constipation and takes Linzess daily at home, patient's at bedside, discussed about CT head findings and plan for neurology evaluation. Patient has bladder stimulator but does not have his remote with him and hence MRI cannot be done without this remote for formulation technician. Hence MRI order has been canceled, neurology notified. Neurology will see him shortly. Physical Exam Physical Exam: GENERAL: Alert and oriented x3. NAD, on RA. HEENT: No pallor, no icterus. Pupils equal, round and reactive to light. Oral mucosa moist. NECK: No JVD, no neck masses. HEART: S1 and S2 heard. Regular rate and rhythm. No murmur, no gallop. RESPIRATORY SYSTEM: Normal AP diameter. No accessory muscle use. No wheezing, no crackles. ABDOMEN: Soft, bowel sounds present, nontender, no distention. CENTRAL NERVOUS SYSTEM: No facial droop. Speech is clear. Obeys simple commands. Moves extremities. LLE 4/5; rle 5/5. EXTREMITIES: No edema, no erythema seen. Results & Data Results & Data Vital Signs (Past 12 Hours) Vital Signs Temp Pulse Pulse Pulse Resp BP BP 08/29/22 15:28 36.4 C L 77 16 151/74 H 08/29/22 14:48 36.4 C L 71 20 159/71 H 08/29/22 08:57 98 H 20 142/75 H 08/29/22 08:05 99 H 20 142/79 H 08/29/22 07:04 82 08/29/22 06:30 80 24 141/79 H 08/29/22 06:00 84 20 144/83 H 08/29/22 05:00 85 20 139/73 Pulse Ox O2 Del Method 08/29/22 15:28 97 Room Air 08/29/22 14:48 96 Room Air 08/29/22 08:57 98 Room Air 08/29/22 08:05 95 Room Air 08/29/22 07:04 08/29/22 06:30 96 08/29/22 06:00 96 08/29/22 05:00 96
--- NOTE | 2022-08-29 16:58 | Neurology Consultation ---
Date of Consultation August 29, 2022 Assessment & Plan (1) Weakness: (2) Diabetes: (3) Atrial fibrillation: (4) Ambulatory dysfunction: A 76 year old admitted with recent falls and ambulatory difficulty in the setting of known peripheral vascular disease w carotid stenosis, Afib on Coumadin, type II DM, and previous CVA. On examine patient has proximal muscle weakness evidence by difficulty arising from chair and using walker. No obvious focal weakness evident on televideo. Repeat CT head wo unchanged. CT head shows chronic appearing right MCA ischemic stroke with known multivessel atherosclerosis. Agree with starting ASA 81 mg daily in addition to his Pradaxa for secondary stroke prevention. He is following with vascular surgery at home. He has been evaluated in the past for postural instability and reports being diagnosed with parkinsonism. No clear signs of primary PD on my evaluation. Recommend to continue home high intensity statin. Would defer on any additional stroke work up as repeat CT head is reassuring and TTE shows presered EF. Will likely need acute rehab given the ambulatyory difficulty. wishes to pursue acute rehab closder to home. Outpatient follow up with neurology after rehab. In regards to his RLS ok to start Mirapex 0.25 mg Qhr as needed for RLS. Please call or page me with any additional questions or concerns. History of Present Illness Reason for Consultation: Ambulatory difficulty Requesting Physician: Shukri Shell MD Attending Physician: Shukri Shell MD History of Present Illness A 76 year old male with Hx of previous stroke, Afib on Pradaxa, parkinsonism, and carotid disease admitted with recurrent falls and ambulatory difficulty. This was a televideo consult. [facility]. He had 2 falls in the last few days and was having a hard time getting up. He denies any focal weakness but reports pain and reoccurance of RLS after getting CTA head and neck. He follows with Neurolgy in [facility]. He denies numbness or speech changes. Compliant with his medications. Allergies Allergy/AdvReac Type Severity Reaction Status Date / Time Sulfa (Sulfonamide Allergy from when Unverified 08/28/22 19:22 Antibiotics) he was young Iodinated Contrast Media AdvReac Intermediate skin Unverified 08/28/22 19:27 turned red and warm, felt sick/some trouble breathing Home Medications Medication Instructions Recorded Confirmed Type atorvastatin 80 mg tablet 80 mg PO QPM 08/28/22 08/28/22 History azelastine 137 mcg (0.1 %) nasal 2 spray intranasal Q12H 08/28/22 08/28/22 History spray aerosol bupropion HCl 300 mg 24 hr tablet, 300 mg PO DAILY 08/28/22 08/28/22 History extended release clindamycin phosphate 1 % topical 1 applic topical Q OTHER DAY PRN 08/28/22 08/28/22 History gel roseaca cyanocobalamin (vitamin B-12) 1,000 mcg PO DAILY 08/28/22 08/28/22 History 1,000 mcg tablet dabigatran etexilate 150 mg capsule 150 mg PO BID 08/28/22 08/28/22 History latanoprost 0.005 % eye drops 1 drp ophthalmic (eye) HS 08/28/22 08/28/22 History linaclotide 145 mcg capsule 145 mcg PO QAM 08/28/22 08/28/22 History (Linzess) lisinopril 20 mg tablet 20 mg PO DAILY 08/28/22 08/28/22 History metformin 1,000 mg tablet 1,000 mg PO BID 08/28/22 08/28/22 History mirtazapine 15 mg tablet 15 mg PO QPM 08/28/22 08/28/22 History pantoprazole 40 mg tablet,delayed See Rx Instructions .Route .COMPLEX 08/28/22 08/28/22 History release zolpidem 5 mg tablet 5 mg PO HS PRN Sleep 08/28/22 08/28/22 History Patient History Medical History Atrial fibrillation CVA (cerebral vascular accident) Diabetes GERD (gastroesophageal reflux disease) HLD (hyperlipidemia) HTN (hypertension) No pertinent family history Surgical History No pertinent past surgical history Social History Smoking Status: Never smoker Hx Alcohol Use: Yes Alcohol type: wine and hard liquor Hx Substance Use: No Preferred Language: Yi Communication Ability: Effective Stack Supervisor Required: No Beliefs That Will Affect Care: None Current Living Situation: Spouse Other Information That Helps Us Care for You: No Feels Safe at Home: Yes Safety Concerns: Feels Safe At This Time Assistive Devices: Glasses and Walker Assistive Devices Comment: Hearing aides are at home Physical Exam Physical Exam: Patient seen and examined. Awake and alert. Speech is fluent and clear. Following commands. Face symmetric. Eyes midline. No involuntary movements. Sensation intact. Difficulty arrising from seated position. Gait is wide based and very unsteady. Needs assistance. Results & Data Vital Signs (Past 12 Hours) Vital Signs Temp Pulse Pulse Pulse Resp BP BP 08/29/22 15:28 36.4 C L 77 16 151/74 H 08/29/22 14:48 36.4 C L 71 20 159/71 H 08/29/22 08:57 98 H 20 142/75 H 08/29/22 08:05 99 H 20 142/79 H 08/29/22 07:04 82 08/29/22 06:30 80 24 141/79 H 08/29/22 06:00 84 20 144/83 H 08/29/22 05:00 85 20 139/73 Pulse Ox O2 Del Method 08/29/22 15:28 97 Room Air 08/29/22 14:48 96 Room Air 08/29/22 08:57 98 Room Air 08/29/22 08:05 95 Room Air 08/29/22 07:04 08/29/22 06:30 96 08/29/22 06:00 96 08/29/22 05:00 96 Laboratory Results HA1c 7.7 Mag 1.6 LDL 49 TSH normal Diagnostic Findings CTA head and neck : Scattered old infarcts are again noted within the brain. The paranasal sinuses a nd mastoid air cells are clear. Moderate calcified plaque within the distal vertebral arteries and bilateral carotid siphons. This results in mild focal narrowing within the distal right vertebral artery and bilateral supraclinoid ICAs. The basilar artery is widely patent. Mild multifocal narrowing within the left [employer] DEAN. The right [employer] is widely patent. Mild multifocal narrowing within the right SHANDRA. The left SHANDRA is widely patent. No significant stenosis or occlusion within the bilateral MCAs. No cerebral aneurysms identified. The aortic arch and proximal great vessels are widely patent. No significant stenosis, occlusion, or dissection within the bilateral vertebral arteries. Moderate calcified plaque within the bilateral carotid bifurcations. This results in approximately 30% stenosis at the takeoff of the right internal carotid artery and up to 50% stenosis at the takeoff of the left internal carotid artery. This is best seen on image 215. The mid to distal bilateral internal carotid arteries are patent. The right common carotid artery is patent. There is approximately 60-70% stenosis at the distal left common carotid artery best seen on image 208 due to the atherosclerotic plaque. IMPRESSION: 1. Multifocal areas of mild stenosis within the cerebral arteries as described above. No high-grade stenosis or occlusion identified. 2. Approximately 60-70% stenosis at the distal left common carotid artery and 50% stenosis at the takeoff of the left internal carotid artery due to the atherosclerotic plaque. 3. Approximately 30% focal stenosis at the takeoff of the right internal carotid artery. 4. The bilateral cervical vertebral arteries are widely patent. CT head: No acute intracranial hemorrhage, midline shift, intracranial mass, hydrocephalus, territorial ischemia or abnormal extra-axial collection. Involutional changes with chronic microvascular ischemic disease. Scattered areas of encephalomalacia noted within the bilateral cerebral hemispheres. 6 mm ill-defined hypodense focus in the posterior limb of the right internal capsule. Cerebral vascular calcifications. Motion degraded exam. The calvarium is intact. Prior bilateral lens repair. The paranasal sinuses, mastoid air cells, and middle ear cavities are clear. IMPRESSION: 1. Motion degraded exam without acute intracranial hemorrhage, midline shift or acute territorial infarct. 2. Involutional changes with chronic microvascular ischemic disease. 3. Scattered areas of encephalomalacia within the bilateral cerebral hemispheres suggestive of chronic infarcts. 4. Age-indeterminate subcentimeter lacunar infarct of the posterior limb right internal capsule. TTE: EF 65%
--- NOTE | 2022-08-29 18:23 | CT Scan Report ---
CT head/brain wo con CLINICAL HISTORY: 76 years-old Male with f/u stroke. Acute shocklike symptoms TECHNIQUE: Multiple axial CT images of the head were obtained without contrast. A dose lowering tech nique was utilized adhering to the principles of ALARA. CT DOSE: 703.85 mGy.cm COMPARISON: Head CT 08/28/2022 FINDINGS: No acute intracranial hemorrhage, midline shift, intracranial mass, hydrocephalus, territorial ischem ia or abnormal extra-axial collection. Involutional changes with chronic microvascular ischemic disea se. Scattered areas of encephalomalacia noted within the bilateral cerebral hemispheres. 6 mm ill-def ined hypodense focus in the posterior limb of the right internal capsule. Cerebral vascular calcifica tions. Motion degraded exam. The calvarium is intact. Prior bilateral lens repair. The paranasal sinu ses, mastoid air cells, and middle ear cavities are clear. IMPRESSION: No acute intracranial abnormality. ACT 112: Negative or not required by law. The above report was generated using voice recognition software. It may contain grammatical, syntax o r spelling errors. Electronically signed by: Tyler Thrasher M.D. 08/29/2022 6:20 PM
[2022-08-29] MEDS: ACETAMINOPHEN 325 MG TAB PO PRN (20:12)
[2022-08-29] MEDS: PRAMIPEXOLE DIHYDROCHLO 0.25 MG TAB PO PRN (20:14)
[2022-08-29] MEDS: ATORVASTATIN 40 MG TAB PO SCH (20:43)
[2022-08-29] MEDS: LATANOPROST 0.005% OP SOLN 2.5 ML BTL OP SCH (20:44)
[2022-08-29] MEDS: MIRTAZAPINE TAB 15 MG TAB PO SCH (20:44)
[2022-08-30 06:15] LABS: Basophils # (auto) 0.05 K/uL (0-0.2); Basophils % (auto) 0.5 %; Eosinophils # (auto) 0.11 K/uL (0-0.50); Eosinophils % (auto) 1.2 %; Hematocrit (blood only) 32.8 % (42.0-52.0); Hemoglobin 11.3 g/dl (14.0-18.0); Immature Granulocytes # (auto) 0.04 K/uL (0.01-0.20); Immature Granulocytes % (auto) 0.4 %; Lymphocytes # (auto) 1.69 K/uL (1.2-3.4); Lymphocytes % (auto) 18.5 %; Mean Corpuscular Hemoglobin 31.6 pg (25.0-34.0); Mean Corpuscular Hgb Conc 34.5 g/dL (32.0-36.0); Mean Corpuscular Volume 91.6 fL (80.0-100.0); Mean Platelet Volume 9.7 fL (9.4-12.4); Monocytes # (auto) 0.65 K/uL (0.11-0.59); Monocytes % (auto) 7.1 %; Neutrophils # (auto) 6.61 K/uL (1.40-6.50); Neutrophils % (auto) 72.3 %; Platelet Count 188 K/uL (130-400); RDW Coefficient of Variation 13.3 % (11.5-14.5); RDW Standard Deviation 44.8 fL (36.4-46.3); Red Blood Count 3.58 M/uL (4.70-6.10); White Blood Count 9.15 K/ul (4.8-10.8)
[2022-08-30 06:35] LABS: BUN Creatinine Ratio 20.4 (10-20); Calcium 8.9 mg/dl (8.6-10.3); Creatinine Clr Calc Pharmacy 68.2 ml/min; Est GFR (African American) 85.2 ml/min; Est GFR (Non-African American) 73.6 ml/min; Magnesium 1.5 mg/dl (1.7-2.4); Potassium 4.3 mmol/L (3.5-5.1)
[2022-08-30] MEDS: ACETAMINOPHEN 325 MG TAB PO PRN ×2 (08:10→18:45)
[2022-08-30] MEDS: AZELASTINE HCL 0.1% NASAL 200 SPRAYS/27,400 MCG BTL SCH ×2 (08:10→20:06)
[2022-08-30] MEDS: PANTOprazole 40 MG TAB PO SCH ×2 (08:57→09:00)
[2022-08-30] MEDS: buPROPion XL 150 MG TABCR PO SCH (08:57)
[2022-08-30] MEDS: ASPIRIN 81 MG ECTAB PO SCH (08:57)
[2022-08-30] MEDS: lisinopril 20 MG TAB PO SCH (08:58)
[2022-08-30] MEDS: CYANOCOBALAMIN (B-12) 500 MCG TABLET PO SCH (08:58)
[2022-08-30] MEDS ORDERED: LINACLOTIDE 145 MCG CAPSULE PO SCH (09:00)
[2022-08-30] MEDS: MAGNESIUM SULFATE / D5W 1 GM/100 ML BAG IV SCH ×2 (10:17→12:29)
[2022-08-30] MEDS: DABIGATRAN ETEXILATE 75 MG CAP PO SCH ×2 (10:31→20:06)
--- NOTE | 2022-08-30 13:04 | Pharmacy Report ---
- Date of Service August 30, 2022 - Pharmacy CVA/TIA Medication Review Medications to Prevent Stroke handout has been added to the patients discharge packet. Antiplatelet(s) * Aspirin 81mg PO Daily Cholesterol * High intensity statin: atorvastatin 80 mg daily DVT Prophylaxis * Pradaxa 150mg PO BID Therapeutic Anticoagulation * Hx Afib noted, and patient is currently receiving Pradaxa 150mg PO BID Type 2 Diabetes * A1c 7.7% * Patient has T2DM and patient is prescribed Metformin, a diabetes medication with proven CVD benefit will be deferred to their outpatient provider due to familiarity with risks/benefits of such therapies. "Medications to prevent stroke" handout has already been added to the patient's discharge packet, which instructs the patient to follow up with their outpatient provider to evaluate which diabetes medication with proven CVD benefit is best for them
[2022-08-30] MEDS: PRAMIPEXOLE DIHYDROCHLO 0.25 MG TAB PO PRN (16:38)
--- NOTE | 2022-08-30 16:52 | XRay Report ---
XR hip [place] 2v w pelvis CLINICAL HISTORY: left hip pain/recent fall COMPARISON STUDY: No previous studies for comparison. FINDINGS: Bladder stimulator device is incidentally noted. Sacroiliac joints and symphysis pubis are intact. There is mild joint space narrowing and osteophytosis of the hips. There is no proximal right femoral fracture. Irregularity of the left inferior pubic ramus is chronic. There is slight foreshor tening of the left femoral neck. Impacted left femoral neck fracture would be difficult to exclude. IMPRESSION: Foreshortening of the left femoral neck. Findings are equivocal for an impacted left fem oral neck fracture. A CT of the left hip is recommended. This finding will be called/faxed to lydia provider at time of dictation. ACT 112: Negative or not required by law. Electronically signed by: Terrell Goel M.D. 08/30/2022 4:50 PM
--- NOTE | 2022-08-30 18:08 | CT Scan Report ---
LEFT CT WITHOUT CONTRAST CLINICAL HISTORY: Possible left femoral neck fracture on radiographs. Left hip pain following fall. COMPARISON STUDY: Pelvis and left hip radiograph performed earlier today. TECHNIQUE: Axial images of the left hip were obtained without IV contrast. Sagittal and coronal recon structions were viewed. Automated exposure control was utilized for the study. A dose lowering techn ique was utilized adhering to the principles of ALARA. FINDINGS: Alignment of the left hip is anatomic. There is no acute fracture. The equivocal left femor al neck fracture radiograph was artifactual. There is mild left hip osteoarthritis. No acute fracture s are identified within visualized portions of the hemipelvis. No hematoma is identified adjacent to the left hip. IMPRESSION: No left hip fracture. Equivocal left hip fracture radiograph was artifactual. ACT 112: Negative or not required by law. Electronically signed by: Terrell Goel M.D. 08/30/2022 6:05 PM
--- NOTE | 2022-08-30 18:16 | Hospitalist Progress Note ---
Date of Service August 30, 2022 Assessment & Plan (1) Weakness: Plan: 76-year-old male with past medical history of diabetes , Parkinson's, history of CVA about 1 to 2 years ago, hypertension, a fib? Presents with weakness of BLE (Lt > Rt) and possible strokelike symptoms. He also had allergic reaction to the contrast used in ED during imaging w/ nausea, shortness of breath, whole body redness/itching which were relieved with use of Benadryl and steroid. Iodinated contrast has been put in allergy list. He is being managed for the following: Weakness strokelike symptoms Possible TIA The night of arrival he had weakness of the bilateral lower extremities until morning and then the got resolved When had contrast for CAT scan he had allergic reaction at that time he had spasms of the left lower extremity and some weakness in the left lower extremity that is improving now. Says has restless legs CT head shows chronic infarcts and also age-indeterminate lateral infarct in the posterior limb right internal capsule. CTA head and neck w/ multifocal areas of mild stenosis within the cerebral arteries. 60 to 70% stenosis of the distal left common carotid artery and 50% at the takeoff of the internal carotid artery. 30% stenosis at the takeoff of the right internal carotid artery. Patient says he has a follow-up appoint with vascular surgery and he had this stenosis before LLE weakness improved at bedside exam, continue with telemetry, MRI cannot be done due to not having remote for his bladder stimulator per television technician. A1c of 7.7, LDL of 49. Neurology consulted, appreciate recommendation. Repeat CT of the head was done and reviewed Speech evaluated, patient on diet. PT/OT. Patient is on Pradaxa and high-dose statin. Continue with newly added aspirin for now. Await neuro input. Abnormal EKG: Repeat EKG about the same and follow-up echocardiogram. Patient has loop recorder and follows with cardiology at [place]. Continue with telemetry monitoring. Any concern consider cardiology consult Possible A-fib, Rates under control: On Pradaxa. We will monitor Constipation: Continue home Linzess Diabetes: We will hold metformin, Insulin sliding scale. A1c of 7.7. Given history of stroke and T2DM, patient will benefit from GLP-1 agonist or SGLT2 inhibitor. Will defer this to patient's outpatient provider. Hypertension: Continue with home lisinopril Hyperlipidemia: Continue with home statin DVT prophylaxis on Pradaxa Disposition: PT/OT, awaiting placement. Full code (2) Diabetes: (3) Atrial fibrillation: Admission and Anticipated Discharge Date Admission Date: August 28, 2022 Subjective Patient seen and examined at bedside as a follow-up of weakness and strokelike symptoms. Patient was lying in bed, on room air, NAD, reports left lower extremity weakness more than right, denies any headache or dizziness or chest pain, reports constipation and takes Linzess daily at home, patient's at bedside. Patient had left hip pain in the evening yesterday, relieved with Tylenol, I did an x-ray pelvis to rule out any fracture as he had multiple falls recently, there was a concern of left hip fracture, CT scan of the hip was done which ruled out fracture. Same was communicated to patient's . Initially orthopedic consult was placed after x-ray hip, later on canceled. Physical Exam Physical Exam: GENERAL: Alert and oriented x3. NAD, on RA. HEENT: No pallor, no icterus. Pupils equal, round and reactive to light. Oral mucosa moist. NECK: No JVD, no neck masses. HEART: S1 and S2 heard. Regular rate and rhythm. No murmur, no gallop. RESPIRATORY SYSTEM: Normal AP diameter. No accessory muscle use. No wheezing, no crackles. ABDOMEN: Soft, bowel sounds present, nontender, no distention. CENTRAL NERVOUS SYSTEM: No facial droop. Speech is clear. Obeys simple commands. Moves extremities. LLE 4/5; rle 5/5. EXTREMITIES: No edema, no erythema seen. Results & Data Results & Data Vital Signs (Past 12 Hours) Vital Signs Temp Pulse Pulse Resp BP Pulse Ox O2 Del Method 08/30/22 16:21 36.9 C 67 18 120/69 97 Room Air 08/30/22 16:00 71 08/30/22 08:00 94 H 08/30/22 11:11 36.6 C 110 H 20 156/81 H 98 Room Air 08/30/22 07:27 36.6 C 104 H 20 138/71 94 Room Air
[2022-08-30] MEDS: ATORVASTATIN 40 MG TAB PO SCH (20:05)
[2022-08-30] MEDS: LATANOPROST 0.005% OP SOLN 2.5 ML BTL OP SCH (20:07)
[2022-08-30] MEDS: MIRTAZAPINE TAB 15 MG TAB PO SCH (20:08)
[2022-08-30] MEDS: ZOLPIDEM TARTRATE 5 MG TAB PO PRN (20:12)
[2022-08-31] MEDS: LINACLOTIDE 145 MCG CAPSULE PO SCH (06:11)
[2022-08-31 06:36] LABS: Basophils # (auto) 0.05 K/uL (0-0.2); Basophils % (auto) 0.6 %; Eosinophils # (auto) 0.26 K/uL (0-0.50); Eosinophils % (auto) 3.2 %; Hemoglobin 12.6 g/dl (14.0-18.0); Immature Granulocytes # (auto) 0.04 K/uL (0.01-0.20); Immature Granulocytes % (auto) 0.5 %; Lymphocytes # (auto) 2.02 K/uL (1.2-3.4); Lymphocytes % (auto) 24.5 %; Mean Corpuscular Hemoglobin 31.4 pg (25.0-34.0); Mean Corpuscular Volume 89.8 fL (80.0-100.0); Mean Platelet Volume 9.9 fL (9.4-12.4); Monocytes # (auto) 0.65 K/uL (0.11-0.59); Monocytes % (auto) 7.9 %; Neutrophils # (auto) 5.21 K/uL (1.40-6.50); Neutrophils % (auto) 63.3 %; Platelet Count 218 K/uL (130-400); RDW Coefficient of Variation 13.2 % (11.5-14.5); RDW Standard Deviation 43.8 fL (36.4-46.3); Red Blood Count 4.01 M/uL (4.70-6.10); White Blood Count 8.23 K/ul (4.8-10.8)
[2022-08-31 06:59] LABS: Calcium 9.2 mg/dl (8.6-10.3); Creatinine Clr Calc Pharmacy 66.8 ml/min; Est GFR (African American) 83.2 ml/min; Est GFR (Non-African American) 71.8 ml/min; Magnesium 1.8 mg/dl (1.7-2.4); Phosphorus 3.3 mg/dl (2.5-4.9); Potassium 4.1 mmol/L (3.5-5.1)
[2022-08-31] MEDS: PANTOprazole 40 MG TAB PO SCH (08:53)
[2022-08-31] MEDS: lisinopril 20 MG TAB PO SCH (08:54)
[2022-08-31] MEDS: CYANOCOBALAMIN (B-12) 500 MCG TABLET PO SCH (08:54)
[2022-08-31] MEDS: buPROPion XL 150 MG TABCR PO SCH (08:54)
[2022-08-31] MEDS: ASPIRIN 81 MG ECTAB PO SCH (08:55)
[2022-08-31] MEDS: DABIGATRAN ETEXILATE 75 MG CAP PO SCH ×2 (08:56→20:05)
[2022-08-31] MEDS: AZELASTINE HCL 0.1% NASAL 200 SPRAYS/27,400 MCG BTL SCH ×2 (08:56→20:06)
[2022-08-31] MEDS: PRAMIPEXOLE DIHYDROCHLO 0.25 MG TAB PO PRN ×2 (10:27→20:11)
--- NOTE | 2022-08-31 17:58 | Hospitalist Progress Note ---
Date of Service August 31, 2022 Assessment & Plan (1) Weakness: Plan: 76-year-old male with past medical history of diabetes , Parkinson's, history of CVA about 1 to 2 years ago, hypertension, a fib? Presents with weakness of BLE (Lt > Rt) and possible strokelike symptoms. He also had allergic reaction to the contrast used in ED during imaging w/ nausea, shortness of breath, whole body redness/itching which were relieved with use of Benadryl and steroid. Iodinated contrast has been put in allergy list. He is being managed for the following: Weakness strokelike symptoms Possible TIA The night of arrival he had weakness of the bilateral lower extremities until morning and then the got resolved When had contrast for CAT scan he had allergic reaction at that time he had spasms of the left lower extremity and some weakness in the left lower extremity that is improving now. Says has restless legs CT head shows chronic infarcts and also age-indeterminate lateral infarct in the posterior limb right internal capsule. CTA head and neck w/ multifocal areas of mild stenosis within the cerebral arteries. 60 to 70% stenosis of the distal left common carotid artery and 50% at the takeoff of the internal carotid artery. 30% stenosis at the takeoff of the right internal carotid artery. Patient says he has a follow-up appoint with vascular surgery and he had this stenosis before LLE weakness improved at bedside exam, continue with telemetry, MRI cannot be done due to not having remote for his bladder stimulator per diploma pharmacy technician. A1c of 7.7, LDL of 49. Neurology consulted, appreciate recommendation. Repeat CT of the head was done and reviewed Speech evaluated, patient on diet. PT/OT. Patient is on Pradaxa and high-dose statin. Continue with newly added aspirin for now. Abnormal EKG: Repeat EKG about the same and follow-up echocardiogram. Patient has loop recorder and follows with cardiology at [place]. Continue with telemetry monitoring. Any concern consider cardiology consult Possible A-fib, Rates under control: On Pradaxa. We will monitor Constipation: Continue home Linzess Diabetes: We will hold metformin, Insulin sliding scale. A1c of 7.7. Given history of stroke and T2DM, patient will benefit from GLP-1 agonist or SGLT2 inhibitor. Will defer this to patient's outpatient provider. Hypertension: Continue with home lisinopril Hyperlipidemia: Continue with home statin DVT prophylaxis on Pradaxa Disposition: PT/OT, awaiting placement. Full code (2) Diabetes: (3) Atrial fibrillation: Admission and Anticipated Discharge Date Admission Date: August 28, 2022 Subjective Patient seen and examined at bedside as a follow-up of weakness and strokelike symptoms. Patient was lying in bed, on room air, NAD, reports left lower extremity weakness more than right, denies any headache or dizziness or chest pain, reports constipation at baseline and takes Linzess daily at home, patient's at bedside. Reports slowly improving strength every day. Physical Exam Physical Exam: GENERAL: Alert and oriented x3. NAD, on RA. HEENT: No pallor, no icterus. Pupils equal, round and reactive to light. Oral mucosa moist. NECK: No JVD, no neck masses. HEART: S1 and S2 heard. Regular rate and rhythm. No murmur, no gallop. RESPIRATORY SYSTEM: Normal AP diameter. No accessory muscle use. No wheezing, no crackles. ABDOMEN: Soft, bowel sounds present, nontender, no distention. CENTRAL NERVOUS SYSTEM: No facial droop. Speech is clear. Obeys simple commands. Moves extremities. LLE 4/5; rle 5/5. EXTREMITIES: No edema, no erythema seen. Results & Data Results & Data Vital Signs (Past 12 Hours) Vital Signs Temp Pulse Pulse Resp BP Pulse Ox O2 Del Method 08/31/22 15:25 36.8 C 69 18 125/68 Room Air 08/31/22 12:02 36.4 C L 86 16 121/72 95 Room Air 08/31/22 08:32 36.4 C L 71 16 143/80 H
[2022-08-31] MEDS: ATORVASTATIN 40 MG TAB PO SCH (20:03)
[2022-08-31] MEDS: MIRTAZAPINE TAB 15 MG TAB PO SCH (20:05)
[2022-08-31] MEDS: LATANOPROST 0.005% OP SOLN 2.5 ML BTL OP SCH (20:06)
[2022-08-31] MEDS: ZOLPIDEM TARTRATE 5 MG TAB PO PRN (20:11)
[2022-09-01] MEDS ORDERED: FUROSEMIDE INJ 20 MG/2 ML VIAL IV ONE (05:16)
[2022-09-01] MEDS: LINACLOTIDE 145 MCG CAPSULE PO SCH (06:11)
[2022-09-01] MEDS: DABIGATRAN ETEXILATE 75 MG CAP PO SCH (09:34)
[2022-09-01] MEDS: lisinopril 20 MG TAB PO SCH (09:35)
[2022-09-01] MEDS: ASPIRIN 81 MG ECTAB PO SCH (09:35)
[2022-09-01] MEDS: buPROPion XL 150 MG TABCR PO SCH (09:35)
[2022-09-01] MEDS: CYANOCOBALAMIN (B-12) 500 MCG TABLET PO SCH (09:35)
[2022-09-01] MEDS: AZELASTINE HCL 0.1% NASAL 200 SPRAYS/27,400 MCG BTL SCH (09:36)
--- NOTE | 2022-09-01 13:11 | Discharge Summary ---
Date of Service September 01, 2022 Admission HPI Per Admitting Provider 76-year-old male with past medical significant for diabetes Parkinson's, history of CVA about 1 to 2 years ago, hypertension, a fib? who is from [facility] visiting [place] presents with weakness of lower extremities. Patient says Parkinson's he has some balance issues. Last night in the hotel room in the middle of the night it was dark he went to the bathroom and sat down on commode and he thinks he slipped a little bit but did not fall down and there was no loss of consciousness but he could not get up. is to call two staff people to help him get up from the commode. This reason he came here. His both legs feel weak in the morning. But they got better. When he went to CAT scan with IV contrast he had allergic reaction with nausea shortness of breath. After Benadryl and steroid his symptoms improved. When is having allergic reaction he also developed spasms in his left lower extremity and his left lower extremity felt weak. On initial exam the left lower extremity was somewhat weak but after a few minutes later it was much improved. Patient says its because of spasm and is is getting better. Patient says he had stroke about 1 and half years ago he had left-sided weakness and and was in the [facility] .States that his left-sided weakness improved now. He is also following with cardiology in [facility]. He thinks his A-fib. He has a loop recorder for last several months. He is on Pradaxa.. He used to be on aspirin and Plavix but after starting Pradaxa aspirin and Plavix are stopped as per patient. Currently resting comfortably and hemodynamically stable. Denies any headache. No blurred visions or earache or runny nose or sore throat. No cough. No difficulty swallowing. Speech is clear. Able to give his history. Denies any chest pain or shortness of breath. No fevers. No nausea currently. No abdominal pain. He is usually constipated because of Parkinson's and takes Linzess. Says his bladder does not work properly and had procedure for it. Past medical history as mentioned above Past surgical history placement of loop recorder Family history father had arrhythmia, mother had leukemia Social history no smoking history , no alcohol Admission Exam Per Admitting Provider General- Not in distress Head- atraumatic Eyes- PERRL, EOMI, ENT- oropharynx clear Neck- supple, no JVD, Lungs- clear to auscultation and percussion Heart- regular rhythm; no murmur, no gallop, no rub appreciated Abdomen- normal bowel sounds, soft, nontender, no distension Extremities- no pretibial edema, no erythema seen Neuro- alert, oriented x 3; PERRL, EOMI; no facial palsy; no dysarthria; motor 5/5 bilaterally on right side 4/5 on left side coordination of movements normal sensations intact.Insight good Skin- warm & dry Principal Diagnosis Weakness Strokelike symptoms Possible TIA Discharge Exam GENERAL: Alert and oriented x3. NAD, on RA. HEENT: No pallor, no icterus. Pupils equal, round and reactive to light. Oral mucosa moist. NECK: No JVD, no neck masses. HEART: S1 and S2 heard. Regular rate and rhythm. No murmur, no gallop. RESPIRATORY SYSTEM: Normal AP diameter. No accessory muscle use. No wheezing, no crackles. ABDOMEN: Soft, bowel sounds present, nontender, no distention. CENTRAL NERVOUS SYSTEM: No facial droop. Speech is clear. Obeys simple commands. Moves extremities. LLE 4/5; rle 5/5. EXTREMITIES: No edema, no erythema seen. Discharge Data Allergies Allergy/AdvReac Type Severity Reaction Status Date / Time Sulfa (Sulfonamide Allergy from when Unverified 08/28/22 19:22 Antibiotics) he was young Iodinated Contrast Media AdvReac Intermediate skin Unverified 08/28/22 19:27 turned red and warm, felt sick/some trouble breathing Consultations 08/28/22 19:53 ED Decision to Admit Stat 08/29/22 08:00 Consult Neurology Routine Ordered Studies 08/28/22 12:51 CT head/brain wo con Stat 08/28/22 17:07 CT angio head w con Stat CT angio neck with con Stat 08/29/22 17:34 CT head/brain wo con Routine 08/30/22 17:09 CT hip LT wo con Routine Hospital Course (1) Weakness: 76-year-old male with past medical history of diabetes , Parkinson's, history of CVA about 1 to 2 years ago, hypertension, a fib? Presents with weakness of BLE (Lt > Rt) and possible strokelike symptoms. He also had allergic reaction to the contrast used in ED during imaging w/ nausea, shortness of breath, whole body redness/itching which were relieved with use of Benadryl and steroid. Iodinated contrast has been put in allergy list. He was managed for the following: Weakness strokelike symptoms Possible TIA The night of arrival he had weakness of the bilateral lower extremities until morning and then the got resolved When had contrast for CAT scan he had allergic reaction at that time he had spasms of the left lower extremity and some weakness in the left lower extremity that is improving now. Says has restless legs CT head shows chronic infarcts and also age-indeterminate lateral infarct in the posterior limb right internal capsule. CTA head and neck w/ multifocal areas of mild stenosis within the cerebral arteries. 60 to 70% stenosis of the distal left common carotid artery and 50% at the takeoff of the internal carotid artery. 30% stenosis at the takeoff of the right internal carotid artery. Patient says he has a follow-up appoint with vascular surgery and he had this stenosis before LLE weakness improved at bedside exam, continue with telemetry, MRI cannot be done due to not having remote for his bladder stimulator per electrical/instrument technician. A1c of 7.7, LDL of 49. Neurology consulted, appreciate recommendation. Repeat CT of the head was done and reviewed Speech evaluated, patient on diet. PT/OT. Patient is on Pradaxa and high-dose statin. Continue with newly added aspirin for now. Abnormal EKG: Repeat EKG about the same and follow-up echocardiogram. Patient has loop recorder and follows with cardiology at [place]. Follow-up with your cardiology as prior. Possible A-fib, Rates under control: On Pradaxa. We will monitor Constipation: Continue home Linzess Diabetes: We will hold metformin, Insulin sliding scale. A1c of 7.7. Given history of stroke and T2DM, patient will benefit from GLP-1 agonist or SGLT2 inhibitor. Will defer this to patient's outpatient provider. Hypertension: Continue with home lisinopril Hyperlipidemia: Continue with home statin DVT prophylaxis on Pradaxa Full code Patient being discharged to SNF with following instruction at the point of discharge: Follow-up with your primary care physician within a week time and likely you will need labs CBC/CMP/magnesium/phosphorus. Neurology evaluated you while in the hospital, you have been started on aspirin in the line of possible transient ischemic attack. Continue with physical therapy. Given history of stroke and T2DM you will benefit from either GLP-1 agonist or SGLT 2 inhibitor. Please discuss with your primary care physician or diabetic clinic regarding these options. Please make sure that you are able to get your medications today by calling your pharmacy before you leave the hospital so that your treatment continuity is not broken. (2) Diabetes: (3) Atrial fibrillation: Home Health Attestation I certify that this patient is under my care and that I, or a physicians audiology assistant working with me, had a face to-face encounter that meets the home health [id number] encounter requirements with this patient. The encounter with the patient was in whole, or in part, for the following medical condition, which is the primary reason for home health care (list medical condition): I certify that, based on my findings, the following services are medically necessary home health services: My clinical findings support the need for the above services because: Further, I certify that my clinical findings support that this patient is homebound (i.e. absences from home require considerable and taxing effort and are for medical reasons or jehovah's witness services or infrequently or of short duration when for other reasons) because: Certification for Home Health Services: Based on the above findings, I certify that this patient is confined to the home and needs intermittent long-term care, physical therapy and/or speech therapy or continues to need occupational therapy. The patient is under my care, and I have initiated the establishment of the plan of care. This patient will be followed by a physician who will periodically review the plan of care. Total Time Total Time Spent Total Time Spent (In Minutes): 45 Discharge Plan Discharge Items Patient Disposition: Transfer [facility] Reason For Visit: FALL, WEAKNESS, STROKE LIKE SYMPTOMS Discharge Diagnosis: Weakness Strokelike symptoms Possible TIA Activity: Resume your previous activity Activity Comment: continue physical therapy. Non-emergency contact: Primary Care Provider Call non-emergency contact if: you have any medication questions, your pain is not controlled and your temperature is above 101 Follow-up/Referrals: PCP,NO [Primary Care Provider] - Diet: Carb Consistent or DM2 and Heart Healthy Addtl Attending Provider Instructions: Follow-up with your primary care physician within a week time and likely you will need labs CBC/CMP/magnesium/phosphorus. Neurology evaluated you while in the hospital, you have been started on aspirin in the line of possible transient ischemic attack. Continue with physical therapy. Given history of stroke and T2DM you will benefit from either GLP-1 agonist or SGLT 2 inhibitor. Please discuss with your primary care physician or diabetic clinic regarding these options. Please make sure that you are able to get your medications today by calling your pharmacy before you leave the hospital so that your treatment continuity is not broken. Pending Studies at Discharge: No Stand-Alone Forms: My [facility] Ingenic, Medications to Prevent Stroke Skilled Items Patient informed of condition?: Yes DNR: No Discharge Level of Care: Skilled Communicable Disease: No Discharge Prognosis: Stable Lines: None Urinary Catheter: No Medications and DC Order Prescriptions: New aspirin 81 mg Tablet,Delayed Release (Dr/Ec) 81 mg PO QAM Qty: 30 0RF pramipexole 0.25 mg Tablet 0.25 mg PO Q8H PRN (Reason: restless leg(s)) Qty: 60 0RF Continued atorvastatin 80 mg tablet 80 mg PO QPM lisinopril 20 mg tablet 20 mg PO DAILY cyanocobalamin (vitamin B-12) 1,000 mcg tablet 1,000 mcg PO DAILY pantoprazole 40 mg tablet,delayed release (DR/EC) See Rx Instructions .ROUTE .COMPLEX Rx Instructions: on sunday, sunday and fridays zolpidem 5 mg tablet 5 mg PO HS PRN (Reason: Sleep) mirtazapine 15 mg tablet 15 mg PO QPM azelastine 137 mcg (0.1 %) aerosol,spray 2 spray INTRANASAL Q12H bupropion HCl 300 mg tablet extended release 24 hr 300 mg PO DAILY Linzess 145 mcg capsule 145 mcg PO QAM latanoprost 0.005 % drops 1 drp ophthalmic (eye) HS clindamycin phosphate 1 % gel 1 applic topical Q OTHER DAY PRN (Reason: [place]) Rx Instructions: apply to face metformin 1,000 mg tablet 1,000 mg PO BID dabigatran etexilate 150 mg capsule 150 mg PO BID Discharge Orders: Discharge Order (Routine); Ordered 09/01/22 Ordered By: Shukri Cantu/Other Patient Handouts: Managing Type 2 Diabetes Admission Data Admit Date/Time: 08/28/22 21:48 Attending Provider: Shukri Shell Admit Provider: Domingo King Primary Care Provider: PCP,NO Other Providers: Domingo King
== END 2022-09-01 14:35 | DRG 69 ==
LOC: ED 12:33 → EDINP 21:48 → 4W 22:15